=== PATIENT | male | born 1980 | race African-American/Black ===

== ENCOUNTER 2024-08-05 14:42 | Inpatient (IN) | payer OTHER, SELFPAY ==
[2024-08-05] VITALS (17 sets, daily range): BP systolic 109–162; BP diastolic 58–131; PULSE 91–114; RESP 13–20; TEMP 36.6–36.8; O2SAT 85–100; BMI 16.5
--- NOTE | ~2024-08-05 | XR_ITS ---
EXAMINATION: XR chest 1V portable 08/05/2024 16:39 INDICATION: AP portable chest PROCEDURE: AP portable chest COMPARISON: No prior studies for comparison. FINDINGS: The lungs are clear. The cardiomediastinal silhouette is within normal limits. There are no pleural effusions. There is no pneumothorax suspected. IMPRESSION: 1: NO ACUTE CARDIOPULMONARY DISEASE. Reviewed, dictated and finalized at location A.
--- NOTE | ~2024-08-05 | CT_ITS ---
EXAMINATION: CT abdomen pelvis w con DATE: 08/05/2024 16:42 INDICATION: Lower abdominal pain TECHNIQUE: Computed tomography (CT) of the abdomen and pelvis was performed with 100 mL Omnipaque-350 intravenous contrast. Automated exposure control and iterative reconstruction technique were employe d. The dose-length product was 432.43 mGy-cm. COMPARISON: None FINDINGS: Lung bases are clear. Visualized inferior aspect of the heart is normal. Atherosclerotic coronary art jose l calcium. No pericardial or pleural effusion. Focal hepatic steatosis at the ligamentum teres. Gal lbladder, spleen, pancreas, bilateral adrenal glands and kidneys are normal. Bowels appear unremarkab le with no obstruction. Normal appendix. Bladder is normal. No free intraperitoneal gas or fluid. No pathologically enlarged abdominal or pelvic lymphadenopathy. IMPRESSION: 1. No acute intra-abdominal/pelvic process. Reviewed, dictated and finalized at location A.
--- NOTE | 2024-08-05 14:53 | ED_ITS ---
HPI - General Adult General Chief complaint: Nausea/Vomiting/Diarrhea Stated complaint: n/v x 2 hours Time Seen by Provider: 08/05/24 14:49 History of Present Illness HPI narrative: 44-year-old male present to the emergency department for evaluation for lower abdominal pain with associated nausea vomiting and diarrhea. Patient states he has been sick for proximal last 3 days and has continued to worsen. Patient states he has been incontinent stool was diarrhea. Patient is a type 2 diabetic. Patient called EMS from a local hotel room. Patient does admit to smoking marijuana approximately 2 days ago. Patient does take metformin and Jardiance. While he has been out of his insulin he has still been taking these oral medications. Related Data Home Medications ?Medication ?Instructions ?Recorded ?Confirmed ?Last Taken ?Type empagliflozin 25 mg tablet 25 mg PO DAILY 08/05/24 08/05/24 08/04/24 History (Jardiance) insulin glargine 100 unit/mL (3 40 unit subcut QPM 08/05/24 08/05/24 07/29/24 History mL) subcutaneous pen (Basaglar KwikPen U-100 Insulin) metformin 500 mg tablet,extended 500 mg PO QPM 08/05/24 08/05/24 08/04/24 History release 24 hr Allergies Allergy/AdvReac Type Severity Reaction Status Date / Time No Known Allergies Allergy Verified 08/05/24 19:44 Review of Systems 2 Review of Systems: All systems reviewed & are unremarkable except as noted in HPI and below PMFSH Past Medical History Medical History DM2 (diabetes mellitus, type 2) Exam 2 Narrative: APPEARANCE: Uncomfortable appearing HEAD: normocephalic, atraumatic. EYES: PERRLA/EOMI, conjunctivae clear. NOSE: Normal no drainage EARS:TMS clear with good light reflex. THROAT: Pharynx clear, no exudate. NECK: Supple. No adenopathy, no masses. RESPIRATORY: Airway patent, respirations nonlabored. Clear to auscultation bilaterally, no rales, rhonchi, wheezing. CARDIOVASCULAR: Regular rate and rhythm without murmurs rubs or gallops. ABDOMINAL: Lower abdominal tenderness to palpation with normal bowel sounds, nondistended MUSCULOSKELETAL: Moves all extremities. Strength/ROM intact, No edema, No calf tenderness. NEURO: Alert. Cranial nerves II through XII intact. Good gait. Good coordination SKIN: Warm, dry. Normal Color Course Vital Signs Vital signs: Vital Signs Temperature 98 F 08/05/24 14:42 Pulse Rate 91 08/05/24 14:42 Respiratory Rate 15 08/05/24 14:42 Blood Pressure 141/74 H 08/05/24 14:42 Pulse Oximetry 99 08/05/24 14:42 Oxygen Delivery Room Air 08/05/24 14:42 Temperature 97.8 F 08/05/24 18:42 Pulse Rate 97 08/05/24 18:15 Respiratory Rate 13 08/05/24 18:15 Blood Pressure 147/85 H 08/05/24 18:15 Pulse Oximetry 85 L 08/05/24 18:15 Oxygen Delivery Room Air 08/05/24 14:42 Medical Decision Making MDM Narrative Medical decision making narrative: 44-year-old male present emergency department for evaluation for nausea vomiting diarrhea that is been worsening over the last few days and acutely worsened again over the last few hours. Patient is currently afebrile but does have a leukocytosis of 20.2 and hemoglobin of 14.8. Patient did have an ABG showing a pH is 7.019 a pCO2 of 14.7, patient's ABG showed a carbon dioxide of less than 5 a potassium of 5 and a glucose of 291 with a lactic acid of 4.2. Patient's initial troponin was negative. Patient's beta hydroxybutyrate was 12.8. Patient's ethanol was negative. Patient was negative for influenza RSV and for COVID. Patient was treated with an insulin bolus of 7 units IV along with 2 L of lactated Ringer's. Strong concern for DKA in this patient. ICU was consulted and patient will be started on IV insulin and the DKA protocol. Hypoglycemia orders were also ordered. Differential Diagnosis Differential Diagnosis: COVID, RSV, influenza, UTI, pneumonia, colitis, diverticulitis, appendicitis, DKA Vital Signs Vital Signs: Vital Signs Temperature 98 F 08/05/24 14:42 Pulse Rate 91 08/05/24 14:42 Respiratory Rate 15 08/05/24 14:42 Blood Pressure 141/74 H 08/05/24 14:42 Pulse Oximetry 99 08/05/24 14:42 Oxygen Delivery Room Air 08/05/24 14:42 Temperature 97.8 F 08/05/24 18:42 Pulse Rate 97 08/05/24 18:15 Respiratory Rate 13 08/05/24 18:15 Blood Pressure 147/85 H 08/05/24 18:15 Pulse Oximetry 85 L 08/05/24 18:15 Oxygen Delivery Room Air 08/05/24 14:42 Lab Data Lab results reviewed: Yes I reviewed the patient's lab results. 08/05/24 14:55 08/05/24 16:20 Labs: Lab Results 08/05/24 08/05/24 08/05/24 Range/Units 14:54 14:55 14:56 WBC 20.2 H (4.5-10.0) K/mm3 RBC 5.30 (4.6-6.20) M/mm3 Hgb 14.8 (14.0-18.0) g/dL Hct 48.4 (42.0-52.0) % MCV 91.3 (80-100) fl MCH 27.9 (26-34) pg MCHC 30.6 L (32-36) g/dl RDW 12.9 (11.5-14.5) % Plt Count 201 (150-375) k/mm3 MPV 13.2 H (7.4-10.4) fl Immature Gran % (Auto) Not Reportable Neut % (Auto) Not Reportable Lymph % (Auto) Not Reportable [place] % (Auto) Not Reportable Eos % (Auto) Not Reportable Baso % (Auto) Not Reportable Lymph # (Auto) Not Reportable [place] # (Auto) Not Reportable Eos # (Auto) Not Reportable Baso # (Auto) Not Reportable Abs Immat Gran (auto) Not Reportable Absolute Neuts (auto) Not Reportable Absolute Nucleated RBC Not Reportable Total Counted 100 Neutrophils % (Manual) 79 H (46-73) % Band Neutrophils % 4 (0-6) % Lymphocytes % (Manual) 12.0 L (18-44) % Monocytes % (Manual) 4 (3-9) % Basophils % (Manual) 1 (0-1) % Nucleated RBC % Not Reportable Abs Neuts (Manual) 16.76 H (1.3-6.7) K/mm3 Abs Lymphs (Manual) 2.42 (1.1-4.5) K/mm3 Abs Monocytes (Manual) 0.80 (0.1-0.90) K/mm3 Abs Basophils (Manual) 0.20 H (0.0-0.1) K/mm3 Platelet Estimate Adequate (Adequate) Clumped Platelets Present % Immature Plt Fraction 14.6 H (0.9-11.2) % Hypochromasia 1+ Schistocytes None seen Methemoglobin (0-1.5) %THb Sodium 136 L (137-145) mmol/L Potassium 5.0 (3.4-5.0) mmol/L Chloride 100 (98-107) mmol/L Carbon Dioxide < 5 L (22-30) mmol/L Anion Gap (4-12) mmol/L BUN 24 H (9-20) mg/dL Creatinine 1.46 H (0.7-1.3) mg/dL Estim Creat Clear Calc 55 ml/min Estimated GFR 53 L (59 - ) Glucose 291 H (65-110) mg/dL POC Capillary Glucose 307 H (65-105) mg/dl Lactic Acid 4.2 H* (0.7-2.0) mmol/L Calcium 9.9 (8.4-10.2) mg/dL Phosphorus 8.9 H (2.5-4.5) mg/dL Magnesium 2.3 (1.6-2.3) mg/dL Total Bilirubin 0.9 (0.2-1.3) mg/dL AST 37 (17-59) U/L ALT 38 (6-50) U/L Alkaline Phosphatase 120 (38-126) U/L Troponin I < 0.012 (0.000-0.034) ng/mL Total Protein 8.9 H (6.3-8.2) g/dL Albumin 5.4 H (3.5-5.1) g/dL Lipase 50 (23-300) U/L Beta-Hydroxybutyrate/Acetoacetate 12.80 H (0.02-0.27) mmol/L TSH (Reflex) 0.936 (0.465-4.68) uIU/mL Ethyl Alcohol < 10 (<10) mg/dL Influenza A (RT-PCR) Negative (Negative) Influenza B (RT-PCR) Negative (Negative) RSV (RT-PCR) Negative (Negative) SARS-CoV-2 RNA (RT-PCR) Negative (Negative) 08/05/24 Range/Units 15:11 WBC (4.5-10.0) K/mm3 RBC (4.6-6.20) M/mm3 Hgb (14.0-18.0) g/dL Hct (42.0-52.0) % MCV (80-100) fl MCH (26-34) pg MCHC (32-36) g/dl RDW (11.5-14.5) % Plt Count (150-375) k/mm3 MPV (7.4-10.4) fl Immature Gran % (Auto) Neut % (Auto) Lymph % (Auto) [place] % (Auto) Eos % (Auto) Baso % (Auto) Lymph # (Auto) [place] # (Auto) Eos # (Auto) Baso # (Auto) Abs Immat Gran (auto) Absolute Neuts (auto) Absolute Nucleated RBC Total Counted Neutrophils % (Manual) (46-73) % Band Neutrophils % (0-6) % Lymphocytes % (Manual) (18-44) % Monocytes % (Manual) (3-9) % Basophils % (Manual) (0-1) % Nucleated RBC % Abs Neuts (Manual) (1.3-6.7) K/mm3 Abs Lymphs (Manual) (1.1-4.5) K/mm3 Abs Monocytes (Manual) (0.1-0.90) K/mm3 Abs Basophils (Manual) (0.0-0.1) K/mm3 Platelet Estimate (Adequate) Clumped Platelets % Immature Plt Fraction (0.9-11.2) % Hypochromasia Schistocytes Methemoglobin 0.2 (0-1.5) %THb Sodium (137-145) mmol/L Potassium (3.4-5.0) mmol/L Chloride (98-107) mmol/L Carbon Dioxide (22-30) mmol/L Anion Gap (4-12) mmol/L BUN (9-20) mg/dL Creatinine (0.7-1.3) mg/dL Estim Creat Clear Calc ml/min Estimated GFR (59 - ) Glucose (65-110) mg/dL POC Capillary Glucose (65-105) mg/dl Lactic Acid (0.7-2.0) mmol/L Calcium (8.4-10.2) mg/dL Phosphorus (2.5-4.5) mg/dL Magnesium (1.6-2.3) mg/dL Total Bilirubin (0.2-1.3) mg/dL AST (17-59) U/L ALT (6-50) U/L Alkaline Phosphatase (38-126) U/L Troponin I (0.000-0.034) ng/mL Total Protein (6.3-8.2) g/dL Albumin (3.5-5.1) g/dL Lipase (23-300) U/L Beta-Hydroxybutyrate/Acetoacetate (0.02-0.27) mmol/L TSH (Reflex) (0.465-4.68) uIU/mL Ethyl Alcohol (<10) mg/dL Influenza A (RT-PCR) (Negative) Influenza B (RT-PCR) (Negative) RSV (RT-PCR) (Negative) SARS-CoV-2 RNA (RT-PCR) (Negative) ABG Data ABG results: 08/05/24 08/05/24 15:00 15:11 Puncture Site Right radial ABG pH 7.019 L* ABG pCO2 14.7 L* ABG pO2 Not Reportable ABG PO2/FiO2 Ratio Not Reportable ABG HCO3 3.7 L ABG O2 Saturation Not Reportable ABG O2 Content Not Reportable ABG Base Excess -25.5 VBG pH 6.990 L* VBG pCO2 18.2 L* VBG pO2 75.5 H VBG HCO3 4.3 L A-a Gradient Not Reportable Oxyhemoglobin 97.0 Carboxyhemoglobin 0.7 Reduced Hemoglobin 2.1 Total Hemoglobin 14.1 O2 Delivery Device Room air Room air O2 Liters/Min Not Reportable Not Reportable FiO2 21 21 Critical Care Time Critical Care Time Critical Care Time: Yes Total Critical Care Time: 35 Discharge Plan Discharge Clinical Impression: Nausea vomiting and diarrhea DKA (diabetic ketoacidosis) Qualifiers: Diabetes mellitus type: type 2 Diabetes mellitus complication detail: without coma Qualified Code(s): E11.10 - Type 2 diabetes mellitus with ketoacidosis without coma Patient Disposition: Still a Patient Condition: Serious
[2024-08-05] MEDS: LACTATED RINGERS 1,000 ML 999 ML IV CONT ×2 (15:01→15:38)
[2024-08-05] MEDS: ONDANSETRON INJ 4 MG/2 ML VIAL IV PUSH ×2 (15:01→20:02)
--- NOTE | 2024-08-05 15:02 | ECG_ITS ---
Test Date: 2024-08-05 15:09:14 Measurements Intervals [place] Rate: 92 P: 78 TN: 146 QRS: 68 QRSD: 90 T: 47 QT: 351 QTc: 435 Interpretive Statements SINUS RHYTHM CANNOT R/O SEPTAL INFARCT, AGE INDETERMINATE BORDERLINE ST-T WAVE ABNORMALITY- INF/LAT LEADS PEAKED T WAVES- CONSIDER HYPERKALEMIA ABNORMAL ECG No previous ECG available for comparison Electronically Signed On 08-05-2024 15:44:42 CDT by Broderick Miranda D.O.
[2024-08-05 15:03] LABS: Fractional Inspired Oxygen 21 %; HCO3 VBG 4.3 mEq/l (24.0-30.0); PO2 VBG 75.5 mmHg (35.0-45.0)
[2024-08-05 15:08] LABS: Hematocrit 48.4 % (42.0-52.0); Hemoglobin 14.8 g/dL (14.0-18.0); Immature Platelet Fraction Pct 14.6 % (0.9-11.2); Mean Corpuscular HGB Conc 30.6 g/dl (32-36); Mean Corpuscular Hemoglobin 27.9 pg (26-34); Mean Corpuscular Volume 91.3 fl (80-100); Mean Platelet Volume 13.2 fl (7.4-10.4); Platelet Count Result 201 k/mm3 (150-375); Red Cell Distribution Width 12.9 % (11.5-14.5); White Blood Count 20.2 K/mm3 (4.5-10.0)
[2024-08-05 15:08] LABS: PCO2 VBG 18.2 mmHg (42.0-48.0)
[2024-08-05 15:09] LABS: Device ROOM AIR
[2024-08-05 15:21] LABS: Ethanol < 10 mg/dL (<10)
[2024-08-05 15:22] LABS: Alanine Aminotransferase 38 U/L (6-50); Albumin Level 5.4 g/dL (3.5-5.1); Alkaline Phosphatase 120 U/L (38-126); Aspartate Amino Transferase 37 U/L (17-59); Bilirubin,Total 0.9 mg/dL (0.2-1.3); Blood Urea Nitrogen 24 mg/dL (9-20); Calcium 9.9 mg/dL (8.4-10.2); Carbon Dioxide < 5 mmol/L (22-30); Chloride 100 mmol/L (98-107); Estimated CRCL calculation 55 ml/min; Estimated Glomerular Filt Rate 53; Glucose 291 mg/dL (65-110); Lactic Acid Reflex 4.2 mmol/L (0.7-2.0); Lipase 50 U/L (23-300); Sodium 136 mmol/L (137-145); Total Protein 8.9 g/dL (6.3-8.2)
[2024-08-05 15:24] LABS: Base Excess ABG -25.5 mEq/l (+/-2.0); Carboxyhemoglobin 0.7 % THb (0-2.0); Fractional Inspired Oxygen 21 %; HCO3 ABG 3.7 mEq/l (22.0-26.0); Methemoglobin ABG 0.2 %THb (0-1.5); Reduced Hemoglobin 2.1 %THb (0-5.0); Total Hemoglobin 14.1 g/dL (12.0-18.0)
[2024-08-05 15:28] LABS: Device ROOM AIR; PCO2 ABG 14.7 mmHg (35.0-45.0); Site Drawn RIGHT RADIAL; pH ABG 7.019 (7.350-7.450)
[2024-08-05 15:33] LABS: Troponin I < 0.012 ng/mL (0.000-0.034)
[2024-08-05 15:37] LABS: Band Neutrophils Percent 4 % (0-6); Basophils Percent Manual 1 % (0-1); Lymphocytes Absolute Manual 2.42 K/mm3 (1.1-4.5); Monocytes Percent Manual 4 % (3-9); Neutrophils Absolute Manual 16.76 K/mm3 (1.3-6.7); Neutrophils Percent Manual 79 % (46-73); Platelet Clumps Present; Platelet Estimate Adequate (Adequate); Total Cells Counted 100
[2024-08-05] MEDS: INSULIN HUMAN REGULAR (*BKC) 100 UNITS/ML 7 UNITS IV PUSH (15:37)
[2024-08-05 15:38] LABS: Schistocytes None Seen
[2024-08-05 15:39] LABS: Hypochromasia 1+
[2024-08-05 15:46] LABS: Influenza A QL RT-PCR Negative (Negative); Influenza B QL RT-PCR Negative (Negative); RSV RNA, RT-PCR Negative (Negative); SARS-CoV-2 RNA PCR Negative (Negative)
[2024-08-05 15:53] LABS: Thyroid Stimulating Hormone Reflex 0.936 uIU/mL (0.465-4.68)
[2024-08-05 16:12] LABS: Magnesium 2.3 mg/dL (1.6-2.3); Phosphorus 8.9 mg/dL (2.5-4.5)
--- OUTSIDE RECORDS SUMMARY | 2024-08-05 16:22 | XMS_ITS | CONTINUITY OF CARE DOCUMENT ---
Author Name lu leigh Address Unknown Organization [facility] Address [address] [place] [address] Phone [phone] Care Team Providers Care Photo Retoucher Name Role Phone Kieran REYES, Karis Unavailable MICHAEL DAVIS MD Unavailable INSURANCE PROVIDERS Payer name Policy type / Coverage type [place] [employer] green party ID COUNTS INCLUDE [id number] BEDS AT THE [facility] PLAN Medicaid [id number]
--- OUTSIDE RECORDS SUMMARY | 2024-08-05 16:22 | XMS_ITS | Clinical Summary ---
Author Organization [facility] Address [address] [place] [address] Care Team Providers Care Business Information Analyst Name Role Phone Cesar Allen MD Primary Care Provider [phone] Allergies No known active allergies Medications benzonatate (TESSALON) 200 mg capsuleIndicati ons:Cough Take 1 capsule (200 mg total) by mouth 3 (three) times a day as needed for cough 20 capsule 1 07/10/2019 Active empagliflozin (Jardiance) 10 mg tablet Take 1 tablet (10 mg total) by mouth daily Active insulin glargine (BASAGLAR) 100 unit/mL (3 mL) pen for injection Inject 30 Units under the skin nightly 15 mL 04/27/2024 Active pen needle, diabetic (Pen Needle) 32 gauge x 5/32 needle Use as directed once a day. 100 each 04/27/2024 Active Active Problems Problem Noted Date Diagnosed Date Diabetic ketoacidosis withou t coma associated with type 2 diabetes mellitus 04/26/2024 Assessment & Plan (04/27/2024 2:41 PM LICENSING COORDINATOR): Presented with abdominal pain for 5 days and decreased oral intake/vomiting, found with DKA. History of type 2 diabetes. DKA likely in the setting of influenza a. Compliant with insulin regimen of 30 units nightly. On Jardiance. A1c 13.7 - s/p DKA protocol, bridged to long-acting insulin, basal/bolus ordered. CTM and adjust as needed - Jardiance on discharge since this is not euglycemic DKA and likely provoked by influenza - Follow with PCP physician for management of diabetes Influenza A 04/26/2024 Assessment & Plan (04/27/2024 2:41 PM LICENSING COORDINATOR): Influenza a virus, diagnosed April 23, complete his 5 days' course HTN (hypertension) 04/26/2024 Assessment & Plan (04/26/2024 11:37 PM LICENSING COORDINATOR): Previous history of hypertension: Currently off all treatments. BP control. COVID-19 virus infection 07/09/2019 Assessment & Plan (07/10/2019 9:38 AM CDT): Complicated by pneumomediastinum. Time course, resolving anorexia, improving lymphocyte count suggest that patient indeed recovering. Advised to quarantine for 14-day period starting with day of onset of symptoms. Plan APAP, antitussives. Instructed to return for readmission if severe dyspnea recurs. Assessment & Plan (07/09/2019 12:14 AM CDT): - He presented with URI symptoms and cough. Vital signs on admission stable with no O2 requirement. A CXR obtained on admission showed pneumomediastinum; GGOs seen on chest CT. - COVID-19 RNA PCR was sent on 07/07 and was positive. - Sending D-dimer, CRP, INR, ferritin, haptoglobi - Continue supportive care with antitussives and antipyretics as needed. - Continue COVID-19 droplet and contact precautions per hospital protocol. Closely monitor continuous pulse oximetry for evidence of decompensation. Pneumomediastinum 07/09/2019 Assessment & Plan (07/10/2019 9:41 AM CDT): Likely engendered by forceful coughing. Should prove self-limited. Antitussives. Assessment & Plan (07/09/2019 12:53 AM CDT): No esophageal or airway injury noted on CT chest and neck with contrast. Surgery curbsided by ED, no intervention indicated. Ok for a diet. -Monitor on telemetry with continuous pulse ox -Will need follow up CXR in afternoon -Surgery to leave formal recs DKA (diabetic ketoacidoses) 03/05/2019 Assessment & Plan (07/10/2019 9:36 AM CDT): Resolved. Likely engendered by COVID-19 infection. May resume home regimen at discharge. Assessment & Plan (07/09/2019 12:28 AM CDT): Home regimen is lantus (amount varies between 20 and 29 based on his blood sugars, and he appears to take it at variable times but usually at night) and metformin (ordered as TID). DKA likely triggered by COVID19 infection and dietary indiscretion. -Lantus 20 qhs + SSI ordered, monitor accucheck Assessment & Plan (03/05/2019 11:44 AM LICENSING COORDINATOR): Resolved. Admitted to MICU on 03/03 for DKA. Etiology likely diet-noncompliance during , also ?URI On arrival: Bicarb 5, AG 31, BG 309, Ketones 5.9 and +2 ketonuria. ABG 7. Resolved in 24hrs after IVF, insulin drip. Transferred to floor on 03/04 - Currently: BG 112, 99. Anion gap 14 - Tolerating diet. Denies n/v/abd pain Ischemic cardiomyopathy 03/05/2019 Assessment & Plan (07/10/2019 9:36 AM CDT): Compensated. Continue ASA, atorvastatin as before. Resume clopidogrel at discharge. Assessment & Plan (07/09/2019 12:28 AM CDT): Cont plavix, ASA, atorvastatin Assessment & Plan (03/05/2019 11:54 AM LICENSING COORDINATOR): Last echo in 2014, EF 41% - Cont toprol XL, 25mg - needs repeat echo outpatient Non-ST elevation (NSTEMI) myocardial infarction 02/24/2015 History of placement of sten t in anterior descending branch of left coronary artery 02/24/2015 Assessment & Plan (03/05/2019 11:53 AM LICENSING COORDINATOR): Status post PCI of the LAD with drug-eluting stent x2, in 2015 - Cont ASA, high-dose lipitor - Pt also on Plavix, told to ask PCP if he should remain on it given stent placed many yrs ago Hyperlipidemia 02/24/2015 Assessment & Plan (03/05/2019 11:50 AM LICENSING COORDINATOR): Cont statin Type 2 diabetes mellitus 02/24/2015 Assessment & Plan (03/05/2019 11:55 AM LICENSING COORDINATOR): A1c 14.4% Home regimen includes: 25u Lantus nightly, metformin 500mg TID (? frequency) In last 24hrs: required 29u total insulin (25u Lantus, 4u correctional) - I asked if he would like to stay to see diabetes education, but pt stated he would like to go home as his is working today and he needs to be with his child. - Stressed to patient importance of diet compliance. He is already compliant with his Lantus and metformin - He follows with Dr. Cesar Allen ([address] [place] [address]) as his PCP. He will make an appointment there later this week/early next week. Patient told to ask PCP if he should be seen by an vrt mechanic outpatient - Patient will purchase a new BG meter himself. He has supplies, including lancets and test strips already - Pt told to continue Lantus at 25u nightly. And to check his BG prior to giving himself the Lantus. If BG >200, he was told to take 27u. If BG >250, he was told to take 29u Surgical History Surgery Date Site/Laterality Comments VARICOCELE EXCISION 03/05/2018 - 03/04/2019 US ABDOMEN COMPLETE W LIVER DOPPLER (C) 09/21/2017 Right Medical History Medical History Date Comments Diabetes mellitus (HCC) [place] (mitral incompetence) 2014 Family History Medical History Relation Name Comments Heart disease Mother Family history of cardiac disorder - (Added by TW Conv) Relation Name Status Comments Mother Social History Tobacco Use Types Packs/Day Years Used Date Smoking Tobacco: Former Smokeless Tobacco: Never Alcohol Use Standard Drinks/Week Comments Yes 0 (1 standard drink = 0.6 oz pur e alcohol) Personal Safety Answer Date Recorded Have you ever been in or are you currently in a harmful physical or emotional relationship or is someone making you feel afraid or unsafe? Denies 04/26/2024 Sex and Gender Information Value Date Recorded Sex Assigned at Not on file Legal Sex Male 9:46 PM LICENSING COORDINATOR Gender Identity Not on file Sexual Orientation Not on file Obstetrics History Last Filed Vital Signs Vital Sign Reading Time Taken Comments Blood Pressure 137/89 04/27/2024 7:46 AM LICENSING COORDINATOR Pulse 91 04/27/2024 7:46 AM LICENSING COORDINATOR Temperature 36.8 C (98.2 F) 04/27/2024 7:46 AM LICENSING COORDINATOR Respiratory Rate 19 04/27/2024 7:46 AM LICENSING COORDINATOR Oxygen Saturation 100% 04/27/2024 7:46 AM LICENSING COORDINATOR Inhaled Oxygen Concentration - - Weight 78.9 kg (174 lb) 04/26/2024 4:58 PM LICENSING COORDINATOR Height 198.1 cm (6' 6) 04/26/2024 4:58 PM LICENSING COORDINATOR Body Mass Index 20.11 04/26/2024 4:58 PM LICENSING COORDINATOR Plan of Treatment Health Maintenance Due Date Last Done Comments Albumin Creatinine Ratio, Urine 1981 Depression Screening 1981 Prostate Cancer Screening-PSA 1981 Dilated Eye Exam 1981 Foot Exam 1981 DTaP/Tdap/Td Vaccine (1 - Tdap) 1992 Varicella Vaccines (1 of 2 - 13+ 2-dose series) 1994 Hepatitis B Screening 06/17/1999 Regular Well Visit/Exam 18-64 06/17/1999 Pneumococcal vaccine <65 (1 of 2 - PCV) 2000 Lipid Panel 07/07/2020 07/08/2019, 02/04, 05/30/2016, Additional history exists Hemoglobin A1C 10/25/2024 04/27/2024, 05/0 07/2019, 03/04/2019, Additional history exists Influenza Vaccine (Season Ended) 2024 eGFR 04/27/2025 04/27/2024, 04/06, 04/26/2024, Additional history exists Hepatitis C Screening Completed 05/30/2016 HPV Vaccines Aged Out No longer eligi ble based on patient's age to complete this topic Procedures Procedure Name Priority Date/Time Associated Diagnosis Comments HEMOGLOBIN A1C STAT 04/27/2024 12:41 AM LICENSING COORDINATOR EGFR Timed 04/27/2024 12:02 AM LICENSING COORDINATOR LIPID PANEL Timed 07/08/2019 9:44 PM CDT HEPATITIS C ANTIBODY STAT 05/30/2016 6:08 AM CDT from Last 3 Months or Most Recently Relevant to Health Maintenance Results * (ABNORMAL) Hemoglobin A1c (04/27/2024 12:41 AM LICENSING COORDINATOR) Hgb A1C 13.7(H) 4.0 - 5.6 % Estimated Average Glucose 346 mg/dL [facility] Comment: The ADA recommends reporting an estimated Average Glucose (eAG) with all Hemoglobin A1c results using the equation derived from a study of 507 normal and diabetic adults. Minority populations were underrepresented and children were not included. (Diabetes Care 2020; 43(S1): S66-S76). The eAG is not equivalent to a fasting glucose. Blood 04/27/2024 12:4 1 AM LICENSING COORDINATOR 04/27/2024 12:46 AM LICENSING COORDINATOR Narrative [facility] - 04/27/2024 5:20 AM LICENSING COORDINATOR With next set of labs us Johnny Carpenter MD LAB BLOOD ORDERABLES Final R esult [facility] Department [place] [address] * eGFR (04/27/2024 12:02 AM LICENSING COORDINATOR) eGFR >90 >=60 mL/min/1. 73 m2 Comment: Interpretive Data Reference Interval Normal >/= 90 mL/min/1.73m2 Mildly decreased* 60 - 89 mL/min/1.73m2 Mildly to moderately decreased 45 - 59 mL/min/1.73m2 Moderately to severely decreased 30 - 44 mL/min/1.73m2 Severely decreased 15 - 29 mL/min/1.73m2 Kidney Failure < 15 mL/min/1.73m2 *Relative to young adult level Estimated glomerular filtration rate is determined by the 2020 CKD-EPI equation recommended by the National Kidney Foundation (A Unifying Approach to GFR Estimation: Recommendations of the NKF-ASK Task Force on Reassessing the Inclusion of Race in Diagnosing Kidney Disease, JASN 2020). The CKD-EPI equation should not be used for patients with unstable renal function and has not been validated in children and those over 70. Current interpretive data was last reviewed 2021. Blood 04/27/2024 12:0 2 AM LICENSING COORDINATOR 04/27/2024 12:24 AM LICENSING COORDINATOR us Phuong Bob MD LAB BLOOD ORDERABLES Final Res ult [facility] Department [place] [address] * (ABNORMAL) Lipid panel (07/08/2019 9:44 PM CDT) Cholesterol 336(H) 30 - 199 mg/dL [facility] Comment: Interpretive Data Ages < or = 19 years Acceptable: <170 mg/dL Borderline high: 170-199 mg/dL High: >or= 200 mg/dL Ages > or = 20 years Desirable: <200 mg/dL Borderline high: 200-239 mg/dL High: >or= 240 mg/dL Literature References: 1. Expert Panel on Integrated Guidelines for Cardiovascular Health and Risk Reduction in Children and Adolescents. Pediatrics 2011;128:S213 2. NCEP Expert Panel. Circulation 2004;110:227 Current Interpretive Data was last revised on 2017. Triglycerides 132 <=149 mg/dL [facility] Comment: Interpretive Data Ages < or = 9 years Acceptable: <75 mg/dL Borderline high: 75-99 mg/dL High: >or= 100 mg/dL Ages 10 to 20 years Acceptable: <90 mg/dL Borderline high: 90-129 mg/dL High: >or= 130 mg/dL Ages > or = 20 years Desirable: <150 mg/dL Borderline high: 150-199 mg/dL High: 200-499 mg/dL Very high: >or= 499 mg/dL Literature References: 1. Expert Panel on Integrated Guidelines for Cardiovascular Health and Risk Reduction in Children and Adolescents. Pediatrics 2011;128:S213 2. NCEP Expert Panel. Circulation 2004;110:227 Current Interpretive Data was last revised on 2017. HDL 20(L) >=40 mg/dL [facility] Comment: Interpretive Data Ages < or = 19 years Acceptable: >45 mg/dL Borderline low: 40-45 mg/dL Low: <40 mg/dL Ages > or = 20 years Desirable: >or= 60 mg/dL Low: <40 mg/dL Literature References: 1. Expert Panel on Integrated Guidelines for Cardiovascular Health and Risk Reduction in Children and Adolescents. Pediatrics 2011;128:S213 2. NCEP Expert Panel. Circulation 2004;110:227 Current Interpretive Data was last revised on 2017. LDL, calculated 290(H) <=129 mg/dL [facility] Comment: Interpretive Data Ages < or = 19 years Acceptable: <110 mg/dL Borderline high: 110-129 mg/dL High: >or= 130 mg/dL Ages > or = 20 years Optimal: <100 mg/dL Near optimal: 100-129 mg/dL Borderline high: 130-159 mg/dL High: >160 mg/dL Literature References: 1. Expert Panel on Integrated Guidelines for Cardiovascular Health and Risk Reduction in Children and Adolescents. Pediatrics 2011;128:S213 2. NCEP Expert Panel. Circulation 2004;110:227 Current Interpretive Data was last revised on 2017. Non-HDL Cholesterol 316 mg/dL [facility] Comment: Interpretive Data Ages < or = 19 years Acceptable: <120 mg/dL Borderline high: 120-144 mg/dL High: >145 mg/dL Ages > or = 20 years When triglycerides are >200 mg/dL, Non-HDL cholesterol is a secondary target of therapy with treatment goals that are 30 mg/dL greater than the LDL cholesterol target. Literature References: 1. Expert Panel on Integrated Guidelines for Cardiovascular Health and Risk Reduction in Children and Adolescents. Pediatrics 2011;128:S213 2. NCEP Expert Panel. Circulation 2004;110:227 Current Interpretive Data was last revised on 2017. Chol/HDL ratio 17 [facility] Blood specimen (specimen) 07/08/2019 9:44 PM CDT 07/08/2019 10:01 PM CDT us Gerardo Miller MD LAB BLOOD ORDERABLES Final Result Performing Organization Address [facility] Co de Phone Number [phone] [place] [address] * Hepatitis C antibody (05/30/2016 6:08 AM CDT) Hep C Ab Nonreactive [facility] Comment: Interpretive Data Positive results should be confirmed by a molecular method. If positive, a second separately collected sample should be submitted for Hepatitis C Virus (HCV) RNA Detection and Quantitation by Real-Time Reverse Migration Specialist-PCR (RT-PCR). Current interpretive data was last revised on 2016. Blood specimen (specimen) 05/30/2016 6:08 AM CDT 05/30/2016 6:45 AM CDT us Sterling Delgado MD LAB MICROBIOLOGY - GENERAL OR DERABLES Edited Result - Final Performing Organization Address [facility] Co de Phone Number [facility] [place] [address] from Last 3 Months or Most Recently Relevant to Health Maintenance Insurance [facility] Advance Directives For more information, please contact: [phone] * Full Code (Latest Code Status on File) Date Activated Date Inactivated Comments 07/09/2019 12:24 AM 07/10/2019 6:19 PM * Full Code Date Activated Date Inactivated Comments 03/04/2019 1:49 AM 03/05/2019 6:24 PM Care Teams Business Information Analyst Relationship Specialty Start Date End Date Cesar Allen MD [address] [place] [address] PCP - General 05/29/16
--- OUTSIDE RECORDS SUMMARY | 2024-08-05 16:22 | XMS_ITS | Referral Summary ---
Author Organization [facility] Address [address] [place] [address] Care Team Providers Care Cage Cashier Name Role Phone Cesar Allen MD Primary Care Provider +1- [phone] Allergies No known active allergies Medications benzonatate [...] 04/26/2024 Assessment & Plan (04/27/2024 2:41 PM SUBMARINE WORKER): Presented with abdominal pain for 5 days [...] 04/26/2024 Assessment & Plan (04/27/2024 2:41 PM SUBMARINE WORKER): Influenza a virus, diagnosed April 23, complete his 5 days' course HTN (hypertension) 04/26/2024 Assessment & Plan (04/26/2024 11:37 PM SUBMARINE WORKER): Previous history of hypertension: Currently off all [...] accucheck Assessment & Plan (03/05/2019 11:44 AM SUBMARINE WORKER): Resolved. Admitted to MICU on 03/03 for [...] atorvastatin Assessment & Plan (03/05/2019 11:54 AM SUBMARINE WORKER): Last echo in 2014, EF 41% - Cont toprol XL, 25mg - needs repeat echo outpatient Non-ST elevation (NSTEMI) myocardial infarction 02/24/2015 History of placement of sten t in anterior descending branch of left coronary artery 02/24/2015 Assessment & Plan (03/05/2019 11:53 AM SUBMARINE WORKER): Status post PCI of the LAD with drug-eluting stent x2, in 2015 - Cont ASA, high-dose lipitor - Pt also on Plavix, told to ask PCP if he should remain on it given stent placed many yrs ago Hyperlipidemia 02/24/2015 Assessment & Plan (03/05/2019 11:50 AM SUBMARINE WORKER): Cont statin Type 2 diabetes mellitus 02/24/2015 Assessment & Plan (03/05/2019 11:55 AM SUBMARINE WORKER): A1c 14.4% Home regimen includes: 25u Lantus [...] He follows with Dr. Cesar Allen ([address] [place] [address]) as his PCP. He will make an appointment there later this week/early next week. Patient told to ask PCP if he should be seen by an set up mechanic outpatient - Patient will purchase a new BG meter himself. He has supplies, including lancets and test strips already - Pt told to continue Lantus at 25u nightly. And to check his BG prior to giving himself the Lantus. If BG >200, he was told to take 27u. If BG >250, he was told to take 29u Social History Tobacco Use Types Packs/Day Years [...] on file Legal Sex Male 9:46 PM SUBMARINE WORKER Gender Identity Not on file Sexual Orientation Not on file Last Filed Vital Signs Vital Sign Reading Time Taken Comments Blood Pressure 137/89 04/27/2024 7:46 AM SUBMARINE WORKER Pulse 91 04/27/2024 7:46 AM SUBMARINE WORKER Temperature 36.8 C (98.2 F) 04/27/2024 7:46 AM SUBMARINE WORKER Respiratory Rate 19 04/27/2024 7:46 AM SUBMARINE WORKER Oxygen Saturation 100% 04/27/2024 7:46 AM SUBMARINE WORKER Inhaled Oxygen Concentration - - Weight 78.9 kg (174 lb) 04/26/2024 4:58 PM SUBMARINE WORKER Height 198.1 cm (6' 6) 04/26/2024 4:58 PM SUBMARINE WORKER Body Mass Index 20.11 04/26/2024 4:58 PM SUBMARINE WORKER Plan of Treatment Not on file Procedures Procedure Name Priority Date/Time Associated Diagnosis Comments HEMOGLOBIN A1C STAT 04/27/2024 12:41 AM SUBMARINE WORKER EGFR Timed 04/27/2024 12:02 AM SUBMARINE WORKER LIPID PANEL Timed 07/08/2019 9:44 PM CDT HEPATITIS C ANTIBODY STAT 05/30/2016 6:08 AM CDT from Last 3 Months or Most Recently Relevant to Health Maintenance Results * (ABNORMAL) Hemoglobin A1c (04/27/2024 12:41 AM SUBMARINE WORKER) Hgb A1C 13.7(H) 4.0 - 5.6 % Estimated Average Glucose 346 mg/dL [facility] Comment: The ADA recommends reporting an estimated Average Glucose (eAG) with all Hemoglobin A1c results using the equation derived from a study of 507 normal and diabetic adults. Minority populations were underrepresented and children were not included. (Diabetes Care 2020; 43(S1): S66-S76). The eAG is not equivalent to a fasting glucose. Blood 04/27/2024 12:4 1 AM SUBMARINE WORKER 04/27/2024 12:46 AM SUBMARINE WORKER Narrative [facility] - 04/27/2024 5:20 AM SUBMARINE WORKER With next set of labs us Johnny Carpenter MD LAB BLOOD ORDERABLES Final R esult [facility] Department [place] [address] * eGFR (04/27/2024 12:02 AM SUBMARINE WORKER) eGFR >90 >=60 mL/min/1. 73 m2 Comment: [...] reviewed 2021. Blood 04/27/2024 12:0 2 AM SUBMARINE WORKER 04/27/2024 12:24 AM SUBMARINE WORKER us Phuong Bob MD LAB BLOOD ORDERABLES Final Res ult Performing Organization Address [facility] Co de Phone Number [facility] [place] [address] * (ABNORMAL) Lipid panel (07/08/2019 9:44 PM CDT) Cholesterol 336(H) 30 - 199 mg/dL [facility] Comment: Interpretive Data Ages < or [...] revised on 2017. Triglycerides 132 <=149 mg/dL [facility] Comment: Interpretive Data Ages < or = [...] revised on 2017. HDL 20(L) >=40 mg/dL [facility] Comment: Interpretive Data Ages < or = [...] on 2017. LDL, calculated 290(H) <=129 mg/dL [facility] Comment: Interpretive Data Ages < or = [...] Pediatrics 2011;128:S213 2. NCEP Expert Panel. Circulation 2003;110:227 Current Interpretive Data was last revised on 2017. Non-HDL Cholesterol 316 mg/dL [facility] Comment: Interpretive Data Ages < or [...] last revised on 2017. Chol/HDL ratio 17 [facility] Blood specimen (specimen) 07/08/2019 9:44 PM CDT 07/08/2019 10:01 PM CDT us Gerardo Miller MD LAB BLOOD ORDERABLES Final Result Performing Organization Address [facility] Co de Phone Number [facility] [place] [employer] [place] [address] * Hepatitis C antibody (05/30/2016 6:08 AM CDT) Hep C Ab Nonreactive [facility] Comment: Interpretive Data Positive results should be confirmed by a molecular method. If positive, a second separately collected sample should be submitted for Hepatitis C Virus (HCV) RNA Detection and Quantitation by Real-Time Reverse Linoleum Floor Layer-PCR (RT-PCR). Current interpretive data was last revised on 2016. Blood specimen (specimen) 05/30/2016 6:08 AM CDT 05/30/2016 6:45 AM CDT us Sterling Delgado MD LAB MICROBIOLOGY - GENERAL OR DERABLES Edited Result - Final Performing Organization Address City/[facility]/ZIP Co de Phone Number [facility] [place] [place] [address] from Last 3 Months or Most Recently Relevant to Health Maintenance Insurance [facility] Advance Directives For more information, please contact: [phone] * Full Code (Latest Code Status on File) Date Activated Date Inactivated Comments 07/09/2019 12:24 AM 07/10/2019 6:19 PM * Full Code Date Activated Date Inactivated Comments 03/04/2019 1:49 AM 03/05/2019 6:24 PM Care Teams Cage Cashier Relationship Specialty Start Date End Date Cesar Allen MD [address] [place] [id number] PCP - General 05/29/16
--- NOTE | 2024-08-05 16:25 | P.HP_ITS ---
H&P: HPI History of Present Illness Date/Time: 08/05/24 16:25 Chief Complaint: Nausea, Vomiting Narrative: 44 y/o M with PMH of DM2 presents here with nausea and vomiting. The patient presents here from home via EMS for further evaluation of nausea and vomiting. He reports onset of symptoms 3 days ago. Now also experiencing bowel incontinence, diarrhea, and lower abdominal pain that he describes as 6/10, nonradiating, intermittent, and no aggravating or alleviating factors. He has a history of type 2 diabetes, currently on Metformin, Jardiance, and Insulin. He reports he ran out of his insulin for about one week and has only been on his oral medications. He follows with PCP for his diabetes/endocrine care. History of DKA - last occurrence was a couple months back. Initial VS at presentation: 98? F, HR 91, R 15, 141/74, and 99% on RA. ED workup showed: WBC 20.2, no anemia, ABG showed a pH of 7.019/CO2 14.7/HC03 3.7, sodium 136, creatinine 1.46 and GFR 53 (no previous available for gwendolynjulia dudley), lactic 4.2, glucose 291, phosphorus 8.9, albumin 5.4, beta hydroxy 12.8, and TSH within normal limits. ETOH negative. Viral PCR negative. Review of Systems Review of Systems: All systems reviewed & are unremarkable except as noted in HPI and below PMFSH Past Medical History Medical History (Updated 08/05/24 @ 21:01 by Tammy Garcia APRN) DKA (diabetic ketoacidosis) DM2 (diabetes mellitus, type 2) Social History Social History Smoking status: Never smoker Alcohol intake: former Drinks per week: 3 Substance use: former Substance use type: marijuana Last use: 08/04/2024 Do You Feel Safe in your Home?: Yes Lack of Transportation: No Lack of Food: Never True Current Housing: Decline to Answer Concerned About Future Housing: No Difficulty Paying Gas/Electric Bills: No Difficulty Paying for Meds: No Currently Unemployed: No Education: Decline to Answer Difficulty w/ Childcare or Family Care: No Spiritual care concerns: No Meds Home Medications and Allergies Home Medications ?Medication ?Instructions ?Recorded ?Confirmed ?Type empagliflozin 25 mg tablet 25 mg PO DAILY 08/05/24 08/05/24 History (Jardiance) insulin glargine 100 unit/mL (3 40 unit subcut QPM 08/05/24 08/05/24 History mL) subcutaneous pen (Basaglar KwikPen U-100 Insulin) metformin 500 mg tablet,extended 500 mg PO QPM 08/05/24 08/05/24 History release 24 hr Allergies Allergy/AdvReac Type Severity Reaction Status Date / Time No Known Allergies Allergy Verified 08/05/24 19:44 Vital Signs Vital Signs - 24 hr 08/05/24 14:42 08/05/24 15:37 Temperature 98 F Pulse Rate 91 95 Respiratory Rate 15 17 Blood Pressure 141/74 H 151/131 H Pulse Oximetry 99 Oxygen Delivery Room Air Exam Const: General: comfortable and no acute distress Other: , male, ill-appearing HENMT: Face/Nose/Sinus: Normal nares present Mouth: Yes dry mucous membrane s Eyes: General: appearance normal, both eyes and all related structures Sclera: sclerae normal Pupils: Equal, round and reactive pupils present EOM: EOMs intact bilaterally Resp: Effort & Inspection: normal respiratory effort Auscultation: clear to auscultation bilaterally Cardio: Rate: regular rate Rhythm: regular rhythm Other: S1-S2 present without murmur, rub, ectopy GI: Other: Diffuse abdominal tenderness, abdomen remained soft and nondistended. Normoactive bowel sounds in all quadrants. Skin: General skin exam: normal color and no rashes or lesions noted Wounds: no wounds Neuro: Speech: normal speech Motor exam (neuro): 5/5 motor strength present throughout Sensory Exam: normal sensation Other: A&O x4, mildly somnolent Extrem: General: normal to inspection Psych: Mental Status: mental status grossly normal Affect: normal affect Other: Good insight and judgment appear H&P: Results Labs Labs: Short CBC 08/05/24 Range/Units 14:55 WBC 20.2 H (4.5-10.0) K/mm3 Hgb 14.8 (14.0-18.0) g/dL Hct 48.4 (42.0-52.0) % Plt Count 201 (150-375) k/mm3 [facility] 08/05/24 14:55 Sodium 136 L Potassium 5.0 Chloride 100 Carbon Dioxide < 5 L BUN 24 H Creatinine 1.46 H Glucose 291 H Calcium 9.9 Cardiac Enzymes 08/05/24 Range/Units 14:55 Troponin I < 0.012 (0.000-0.034) ng/mL Liver Function 08/05/24 Range/Units 14:55 Total Bilirubin 0.9 (0.2-1.3) mg/dL AST 37 (17-59) U/L ALT 38 (6-50) U/L Alkaline Phosphatase 120 (38-126) U/L Albumin 5.4 H (3.5-5.1) g/dL Assessment and Plan Assessment and plan (1) DKA (diabetic ketoacidosis): Qualifiers: Diabetes mellitus complication detail: without coma Diabetes mellitus type: type 2 Qualified Code(s): E11.10 - Type 2 diabetes mellitus with ketoacidosis without coma Code(s): E11.10 - Type 2 diabetes mellitus with ketoacidosis without coma Status: Acute Assessment and Plan: - history of type 2 diabetes on insulin, metformin, and Jardiance. Has been out of insulin. - initial glucose POC 307 - labs: WBC 20.2, pH 7.019, CO2 14.7, HC03 3.7, sodium 136, potassium 5.0, creatinine 1.46, GFR 53, lactic 4.2, beta hydroxy 12.8 - trend BMP Q4H, repeat Mag and Phos - DKA protocol initiated - IV fluids: given 2L in ED. Now on protocol fluids. - insulin gtt currently held, will initiate in the ICU - NPO - hold home medications - freezer tunnel operator consulted - staff educator consulted - acid tender consulted (2) Nausea vomiting and diarrhea: Code(s): R11.2 - Nausea with vomiting, unspecified; R19.7 - Diarrhea, unspecified Status: Acute Assessment and Plan: - check CT abd/pelvis -> no acute intra-abdominal/pelvic process noted. - awaiting UA -> no evidence of infection - lipase within normal limits - suspect symptoms secondary to DKA, will rule out additional etiologies Plan Diet: NPO GI Prophylaxis: Pantoprazole DVT Prophylaxis: Lovenox SQ IV fluids: DKA protocol fluid, 2L bolus Lines/Tubes: Peripheral IV Code Status: Full code Quality VTE Prophylaxis VTE prophylaxis: mechanical ordered Critical Care Time: I personally spent 35 minutes of direct patient care including (but not limited to) the physical examination, decision-making, bedside evaluation, review of medical records, review of labs and imaging, discussion with nursing staff and other providers for collaborative, critical care management of this patient. Hospitalist [facility] Advance Care Plan I have confirmed that the patient's Advanced Care Plan is present, code status is documented, or surrogate decision maker is listed in patient medical record.: Yes Medication Reconciliation I have utilized all available resources to obtain, update and review the patients current medications (includes all prescriptions, OTC, herbals, cannabis, and nutritional supplements).: Yes
[2024-08-05 16:26] LABS: Glucose Point of Care 307 mg/dl (65-105)
[2024-08-05 16:26] LABS: Glucose Point of Care 300 mg/dl (65-105)
[2024-08-05] MEDS: INSULIN HUMAN REGULAR (*BKC) 100 UNITS/ML IV PUSH (16:26)
[2024-08-05] MEDS: LACTATED RINGERS 1,000 ML 125 ML IV CONT (16:26)
[2024-08-05 17:03] LABS: Reflex Lactic Acid Yes or No Add Lactic
[2024-08-05] MEDS: SODIUM CHLORIDE 0.9% IV 1,000 ML 150 ML IV CONT (17:03)
[2024-08-05 17:09] LABS: Blood Urea Nitrogen 24 mg/dL (9-20); Calcium 9.7 mg/dL (8.4-10.2); Carbon Dioxide < 5 mmol/L (22-30); Chloride 102 mmol/L (98-107); Estimated CRCL calculation 65 ml/min; Estimated Glomerular Filt Rate > 60; Glucose 288 mg/dL (65-110); Hemoglobin A1C > 14.0 % (<5.7); Potassium 5.3 mmol/L (3.4-5.0); Sodium 137 mmol/L (137-145)
[2024-08-05 17:23] LABS: Glucose Point of Care 232 mg/dl (65-105)
[2024-08-05 17:34] LABS: Add Urine Microscopic? YES; Appearance Urine Clear (Clear); Bacteria Urine None Seen /hpf; Bilirubin Urine Negative (Negative); Blood Urine 1+ (Negative); Color Urine Yellow (Yellow); Glucose Urine UA 3+ mg/dL (Negative); Hyaline Casts Urine Present /lpf; Ketones Urine 4+ mg/dL (Negative); Leukocyte Esterase Ur Negative LEU/UL (Negative); Need Manual Microscopic Reviewed; Nitrate Urine Negative (Negative); Protein Urine 2+ mg/dL (Negative); RBC Urine 0-2 /hpf (0-2); Specific Grav Ur 1.024 (1.001-1.035); Squamous Epithelial Cell Urine None Seen /hpf (Few); Urobilinogen Urine 0.2 mg/dL (<2.0); WBC Urine 0-5 /hpf (0-3)
[2024-08-05 17:38] LABS: Amphetamine Screen Urine Negative (Negative); Barbiturate Screen Urine Negative (Negative); Benzodiazepines Screen Urine Negative (Negative); Cannabinoid Screen Urine Positive (Negative); Cocaine Screen Urine Negative (Negative); Methadone Screen Urine Negative (Negative); Opiate Screen Urine Negative (Negative); Phencyclidine Screen Urine Negative (Negative)
[2024-08-05 17:41] LABS: Alanine Aminotransferase 34 U/L (6-50); Albumin Level 4.8 g/dL (3.5-5.1); Alkaline Phosphatase 111 U/L (38-126); Aspartate Amino Transferase 35 U/L (17-59); Bilirubin,Total 0.8 mg/dL (0.2-1.3); Total Protein 7.8 g/dL (6.3-8.2)
[2024-08-05] MEDS: DEXTROSE 5%/0.45% SOD CHL 1,000 ML 150 ML IV CONT (17:49)
--- NOTE | 2024-08-05 17:50 | PC.NURSE ---
Spoke with Tammy and informed her BS dropped prior to starting insulin infusion. Tammy voiced to start D5 .45NS at the 150ml/hr and let that run briefly before starting insulin. She reported not to start kcl 20meq/D5 at this time
[2024-08-05 17:57] LABS: Lactic Acid 4.4 mmol/L (0.7-2.0)
[2024-08-05] MEDS: INSULIN HUMAN REGULAR (*BKC) 100 UNITS in SODIUM CHLORIDE 0.9% IV 99 ML 6.68 UNITS IV CONT (18:08)
[2024-08-05 18:18] LABS: MRSA (PCR) NOT DETECTED (NOT DETECTE)
[2024-08-05 18:23] LABS: Glucose Point of Care 260 mg/dl (65-105)
--- NOTE | 2024-08-05 18:52 | PC.NURSE ---
This patient, Nomi Elliott, was admitted to Intensive Care Unit-8. Patient/family oriented to hospital policies and general routines including ID bracelet, bed and alarms, visiting hours, pain management, procedures, bathroom and other care routines, personal items, smoking policy, room service/diet, and visiting hours. Information on how to activate the Rapid Response Team has been discussed. Patient/Family are encouraged to report perceived risks to care and to ask questions if they do not understand what they are told or what they should do.
[2024-08-05 19:05] LABS: Glucose Point of Care 255 mg/dl (65-105)
[2024-08-05 20:13] LABS: Glucose Point of Care 246 mg/dl (65-105)
[2024-08-05 20:41] LABS: Blood Urea Nitrogen 21 mg/dL (9-20); Calcium 9.1 mg/dL (8.4-10.2); Carbon Dioxide < 5 mmol/L (22-30); Chloride 105 mmol/L (98-107); Estimated CRCL calculation 81 ml/min; Estimated Glomerular Filt Rate > 60; Glucose 189 mg/dL (65-110); Potassium 4.5 mmol/L (3.4-5.0); Sodium 135 mmol/L (137-145)
[2024-08-05] MEDS: INSULIN HUMAN REGULAR (*BKC) 100 UNITS in SODIUM CHLORIDE 0.9% IV 99 ML 6.5 UNITS IV CONT (21:05)
[2024-08-05 22:13] LABS: Glucose Point of Care 183 mg/dl (65-105)
[2024-08-05 22:13] LABS: Glucose Point of Care 202 mg/dl (65-105)
[2024-08-05 23:03] LABS: Glucose Point of Care 185 mg/dl (65-105)
[2024-08-06] VITALS (15 sets, daily range): BP systolic 106–161; BP diastolic 62–106; PULSE 66–99; RESP 11–24; TEMP 36.2–36.9; O2SAT 99–100; BMI 16.9
--- NOTE | 2024-08-06 | ECHO_ITS ---
Patient Info Name: Nomi Elliott Age: 44 years : 1980 Gender: Male Ht: 79 in Wt: 150 lbs BSA: 1.92 m2 HR: 75 bpm BP: 153 / 71 mmHg Heart Rhythm: Sinus Rhythm Technical Quality: Fair Exam Date: 08/06/2024 1:17 PM Patient Status: O Admit Date: 08/05/2024 Exam Type: CA echo doppler color flow Complete two-dimensional, color flow and Doppler transthoracic echocardiogram is performed. Staff Referring Physician: Lasha Madera Reaming Machine Operator For Plastic: Lilly Vance Attending Provider: Kristian Romano Summary 1. Left ventricular chamber dimension is normal. 2. Left ventricular systolic function is mildly reduced, estimated at 40-45. 3. There is hypokinesis of the anteroseptum, inferoseptum, anterior wall. 4. The left ventricular diastolic function is grade I diastolic dysfunction. 5. Right ventricular systolic function is normal. 6. No significant valvular disease. Left Ventricle Left ventricular chamber dimension is normal. There is no increased left ventricular wall thickness. Left ventricular systolic function is mildly reduced, estimated at 40-45. There is hypokinesis of the anteroseptum, inferoseptum, anterior wall. The left ventricular diastolic function is grade I diastolic dysfunction. Right Ventricle Right ventricular chamber dimension is normal. Right ventricular systolic function is normal. Left Atria Left atrial chamber dimension is normal. Right Atria Right atrial chamber dimension is normal. Atrial Septum Intact interatrial septum visualized by color flow imaging. Aortic Valve The aortic valve is probable trileaflet. There is no aortic valve stenosis. There is no aortic valve regurgitation. Pulmonic Valve The pulmonic valve is not well visualized. Mitral Valve There is trace mitral valve regurgitation. Tricuspid Valve There is trace tricuspid valve regurgitation. Pericardium/Pleural There is no pericardial effusion. Inferior Vena Cava Normal inferior vena cava with >50% collapse upon inspiration consistent with normal right atrial pressure, 3 mmHg. Aorta The aortic root size at the sinus of Valsalva is normal. Left Ventricular Outflow Tract Name Value Normal LVOT 2D LVOT Diameter 2.2 cm LVOT Doppler LVOT Peak Velocity 84 cm/s LVOT Peak Gradient 3 mmHg LVOT Mean Gradient 2 mmHg LVOT VTI 20 cm LVOT VTI/AV VTI Ratio 0.9 LVOT Stroke Volume 79 ml LVOT CO 5.6 l/min LVOT CI 2.9 l/min/m2 Pulmonic Valve Name Value Normal PV Doppler PV Peak Velocity 112 cm/s PV Peak Gradient 5 mmHg Mitral Valve Name Value Normal MV Diastolic Function MV E Peak Velocity 62 cm/s MV A Peak Velocity 68 cm/s MV E/A 0.9 MV Decel Time (PW) 198 ms MV Annular TDI MV E/e' (Septal) 8.4 MV E/e' (Lateral) 4.8 MV E/e' (Average) 6.6 Tricuspid Valve Name Value Normal Estimated PAP/RSVP RA Pressure 3 mmHg <=5 TV Annular TDI TV Lateral Annette s' Velocity 14.3 cm/s >=9.5 Aortic Valve Name Value Normal AV Doppler AV Peak Velocity 112 cm/s AV Peak Gradient 5 mmHg AV Mean Gradient 3 mmHg AV VTI 24 cm AV Area (Cont Eq VTI) 3.3 cm2 >=3.0 AV Area (Cont Eq Dylan) 2.9 cm2 AV DI (Dylan) 0.75 AV Regurgitation 2D LVOT Area 3.9 cm2 Ventricles Name Value Normal LV Dimensions 2D/MM IVS Diastolic Thickness (2D) 0.7 cm 0.6-1.0 LVID Diastole (2D) 5.3 cm 4.2-5.8 LVIW Diastolic Thickness (2D) 0.7 cm 0.6-1.0 LVID Systole (2D) 3.8 cm 2.5-4.0 LVOT Diameter 2.2 cm LV Mass (2D Cubed) 125.81 g 88.00-224.00 LV Mass Index (2D Cubed) 66 g/m2 49-115 Relative Wall Thickness (2D) 0.28 <=0.42 LV Fractional Shortening/Ejection Fraction 2D/MM LV Fractional Shortening (2D) 29 % 25-43 LV EF (2D Teichholz) 55 % LV Diastolic Volume (4C MOD) 110 ml LV EF (4C MOD) 58 % LV Diastolic Volume (2C MOD) 112 ml LV EF (2C MOD) 60 % LV Diastolic Volume (BP MOD) 112 ml 62-150 LV Diastolic Volume Index (BP MOD) 58 ml/m2 34-74 LV Systolic Volume (BP MOD) 46 ml 21-61 LV Systolic Volume Index (BP MOD) 24 ml/m2 11-31 LV EF (BP MOD) 59 % 52-72 LV Diastolic Length (4C) 8.7 cm LV Systolic Length (4C) 6.9 cm LV Stroke Volume (4C MOD) 64 ml Atria Name Value Normal LA Dimensions LA Volume (4C A-L) 34 ml LA Volume (BP A-L) 27 ml RA Dimensions RA Systolic [place] Length (4C) 3.9 cm 2.1-2.7 RA Area (4C) 9.9 cm2 <=18.0 Report Signatures
[2024-08-06 00:06] LABS: Glucose Point of Care 212 mg/dl (65-105)
[2024-08-06 00:40] LABS: Anion Gap 23 mmol/L (4-12); Blood Urea Nitrogen 17 mg/dL (9-20); Calcium 9.1 mg/dL (8.4-10.2); Carbon Dioxide 6 mmol/L (22-30); Chloride 105 mmol/L (98-107); Estimated CRCL calculation 95 ml/min; Estimated Glomerular Filt Rate > 60; Glucose 182 mg/dL (65-110); Potassium 5.1 mmol/L (3.4-5.0); Sodium 134 mmol/L (137-145)
[2024-08-06] MEDS: DEXTROSE 5%/0.45% SOD CHL 1,000 ML 150 ML IV CONT ×2 (01:10→08:10)
[2024-08-06 01:18] LABS: Glucose Point of Care 223 mg/dl (65-105)
[2024-08-06] MEDS: ACETAMINOPHEN 325 MG TABLET 650 MG PO (01:18)
[2024-08-06 02:14] LABS: Glucose Point of Care 267 mg/dl (65-105)
[2024-08-06 03:13] LABS: Glucose Point of Care 211 mg/dl (65-105)
[2024-08-06 04:18] LABS: Glucose Point of Care 220 mg/dl (65-105)
[2024-08-06 04:40] LABS: Basophils Percent Auto 0.1 % (0.2-1.2); Hematocrit 40.9 % (42.0-52.0); Hemoglobin 13.5 g/dL (14.0-18.0); Immature Granulocyte Absolute 0.12 K/mm3 (0.00-0.031); Immature Granulocyte Percent A 0.7 % (0-0.5); Immature Platelet Fraction Pct 13.3 % (0.9-11.2); Lymphocytes Absolute Auto 1.06 K/mm3 (0.9-3.2); Lymphocytes Percent Auto 5.9 % (18.3-44.2); Mean Corpuscular Hemoglobin 28.4 pg (26-34); Mean Corpuscular Volume 86.1 fl (80-100); Monocytes Absolute Auto 0.8 K/mm3 (0.1-0.6); Monocytes Percent Auto 4.2 % (2.6-8.5); Neutrophils Absolute Auto 16.1 K/mm3 (1.3-6.7); Neutrophils Percent Auto 89.1 % (45.5-73.1); Platelet Count Result 178 k/mm3 (150-375); Red Blood Count 4.75 M/mm3 (4.6-6.20); Red Cell Distribution Width 12.7 % (11.5-14.5); White Blood Count 18.1 K/mm3 (4.5-10.0)
[2024-08-06 04:54] LABS: Anion Gap 21 mmol/L (4-12); Blood Urea Nitrogen 16 mg/dL (9-20); Carbon Dioxide 7 mmol/L (22-30); Chloride 105 mmol/L (98-107); Estimated CRCL calculation 97 ml/min; Estimated Glomerular Filt Rate > 60; Glucose 196 mg/dL (65-110); Phosphorus 2.7 mg/dL (2.5-4.5); Potassium 4.9 mmol/L (3.4-5.0); Sodium 133 mmol/L (137-145)
[2024-08-06 05:30] LABS: Glucose Point of Care 201 mg/dl (65-105)
[2024-08-06 06:11] LABS: Glucose Point of Care 228 mg/dl (65-105)
[2024-08-06 07:10] LABS: Glucose Point of Care 200 mg/dl (65-105)
[2024-08-06 08:13] LABS: Glucose Point of Care 202 mg/dl (65-105)
[2024-08-06] MEDS: ONDANSETRON INJ 4 MG/2 ML VIAL IV PUSH (08:32)
[2024-08-06] MEDS: PANTOPRAZOLE SODIUM IV 40 MG VIAL IV PUSH (08:32)
[2024-08-06] MEDS: ENOXAPARIN 40 MG/0.4 ML SYRINGE SUB-Q (08:32)
[2024-08-06 08:46] LABS: Lactic Acid Reflex 0.6 mmol/L (0.7-2.0)
[2024-08-06 08:50] LABS: Anion Gap 18 mmol/L (4-12); Blood Urea Nitrogen 12 mg/dL (9-20); Calcium 9.2 mg/dL (8.4-10.2); Carbon Dioxide 9 mmol/L (22-30); Chloride 106 mmol/L (98-107); Estimated CRCL calculation 106 ml/min; Estimated Glomerular Filt Rate > 60; Glucose 170 mg/dL (65-110); Potassium 4.4 mmol/L (3.4-5.0); Sodium 133 mmol/L (137-145)
[2024-08-06 09:07] LABS: Glucose Point of Care 179 mg/dl (65-105)
[2024-08-06] MEDS: KCL 20 MEQ/D5/0.45% SOD CHL 1,000 ML 200 ML IV CONT ×3 (09:26→20:00)
--- NOTE | 2024-08-06 09:56 | P.CONIN_ITS ---
Assessment and Plan Assessment and plan (1) DKA (diabetic ketoacidosis): Qualifiers: Diabetes mellitus complication detail: without coma Diabetes mellitus type: type 2 Qualified Code(s): E11.10 - Type 2 diabetes mellitus with ketoacidosis without coma Code(s): E11.10 - Type 2 diabetes mellitus with ketoacidosis without coma Status: Acute Assessment and Plan: - history of type 2 diabetes on insulin, metformin, and Jardiance. Has been out of insulin. -patient received IV fluid bolus and will be continue IV fluids -continue insulin infusion - trend BMP Q4H, repeat Mag and Phos -- NPO - oil and gas exploration technician consulted - research hydraulic engineer consulted (2) Nausea vomiting and diarrhea: Code(s): R11.2 - Nausea with vomiting, unspecified; R19.7 - Diarrhea, unspecified Status: Acute Assessment and Plan: CT abd/pelvis -> no acute intra-abdominal/pelvic process noted. Normal LFTs and lipase suspect symptoms secondary to DKA. Continue supportive treatment (3) Chest pain: Code(s): R07.9 - Chest pain, unspecified Status: Acute Assessment and Plan: Patient complains of lower chest and upper abdominal pain which started after nausea vomiting and worse with deep breathing coughing and vomiting. Ches/abdominal t pain is atypical and noncardiac from history and presentation CT chest abdomen pelvis negative Initial troponin negative EKG showed sinus tachycardia with nonspecific ST-T changes. Will repeat EKG Lipase and LFTs negative (4) Abdominal pain: Code(s): R10.9 - Unspecified abdominal pain Status: Acute Assessment and Plan: See above Continue Protonix and add p.r.n. Tums Plan Diet: NPO GI Prophylaxis: Pantoprazole DVT Prophylaxis: Lovenox SQ Lines/Tubes: Peripheral IV Code Status: Full code Total Critical Care Time - 30 minutes Due to a high probability of clinically significant, life threatening deterioration, the patient required my highest level of preparedness to intervene emergently and I personally spent this critical care time directly and personally managing the patient. This critical care time included obtaining a history; examining the patient; pulse oximetry; ordering and review of studies; arranging urgent treatment with development of a management plan; evaluation of patient's response to treatment; frequent reassessment; and discussions with other providers. It was exclusive of separately billable procedures and treating other patients and teaching time. Please see Assessment and Plan section and the rest of the note for further information on patient assessment and treatment [facility] Consult Note Consult date: 08/06/24 Reason for consult: DKA HPI: Nomi Elliott is a 44 year old male male with past medical history of type 2 diabetes who is on insulin metformin and Jardiance presented yesterday chief complaint with nausea vomiting and abdominal pain periods patient has been out of his insulin for last 1 week and started having symptoms 3 days ago. He also states the pain went up to his chest. Pain was worse with deep breathing. Described pain 6/10, it did not radiate anywhere else, intermittent, worse with nausea and vomiting. He denied any fever dysuria hematuria hematochezia melena diarrhea. All other systems were reviewed and were negative Workup in the ER showed vitals 98? F, HR 91, R 15, 141/74, and 99% on RA. WBC 20.2, no anemia, ABG showed a pH of 7.019/CO2 14.7/HC03 3.7, sodium 136, creatinine 1.46 and GFR 53 (no previous available for comparison), lactic 4.2, glucose 291, phosphorus 8.9, albumin 5.4, beta hydroxy 12.8, TSH within normal limits. ETOH negative. Viral PCR negative. Patient was diagnosed with DKA. He was given IV fluid bolus and started on IV fluids and insulin infusion and admitted to ICU. This morning he states pain is better but still there and would like some pain medication. He denied any nausea vomiting at this time. Review of Systems 2 Review of Systems: All systems reviewed & are unremarkable except as noted in HPI and below (HPI) [facility] Past Medical History Medical History DKA (diabetic ketoacidosis) DM2 (diabetes mellitus, type 2) Social History Social History Smoking status: Never smoker Alcohol intake: former Drinks per week: 3 Substance use: former Substance use type: marijuana Last use: 08/04/2024 Do You Feel Safe in your Home?: Yes Lack of Transportation: No Lack of Food: Never True Current Housing: Decline to Answer Concerned About Future Housing: No Difficulty Paying Gas/Electric Bills: No Difficulty Paying for Meds: No Currently Unemployed: No Education: Decline to Answer Difficulty w/ Childcare or Family Care: No Spiritual care concerns: No Meds Home Medications and Allergies Home Medications ?Medication ?Instructions ?Recorded ?Confirmed ?Type empagliflozin 25 mg tablet 25 mg PO DAILY 08/05/24 08/05/24 History (Jardiance) insulin glargine 100 unit/mL (3 40 unit subcut QPM 08/05/24 08/05/24 History mL) subcutaneous pen (Basaglar KwikPen U-100 Insulin) metformin 500 mg tablet,extended 500 mg PO QPM 08/05/24 08/05/24 History release 24 hr Allergies Allergy/AdvReac Type Severity Reaction Status Date / Time No Known Allergies Allergy Verified 08/05/24 19:44 Vital Signs Vital Signs - 24 hr 08/05/24 14:42 08/05/24 15:37 08/05/24 15:49 Temperature 36.6 C Pulse Rate 91 95 95 Respiratory Rate 15 17 16 Blood Pressure 141/74 H 151/131 H 137/79 Pulse Oximetry 99 Oxygen Delivery Room Air 08/05/24 16:15 08/05/24 16:30 08/05/24 16:43 Temperature Pulse Rate 100 92 101 H Respiratory Rate 15 18 16 Blood Pressure 143/80 H 109/84 112/64 Pulse Oximetry 100 Oxygen Delivery 08/05/24 16:45 08/05/24 17:00 08/05/24 17:03 Temperature Pulse Rate 100 105 H 102 H Respiratory Rate 15 19 16 Blood Pressure 119/58 L 131/96 H Pulse Oximetry 100 100 Oxygen Delivery 08/05/24 17:15 08/05/24 17:30 08/05/24 17:52 Temperature Pulse Rate 108 H 105 H 103 H Respiratory Rate 16 16 14 Blood Pressure 138/123 H 129/83 162/91 H Pulse Oximetry Oxygen Delivery 08/05/24 18:00 08/05/24 18:15 08/05/24 18:42 Temperature 36.7 C 36.6 C 36.6 C Pulse Rate 101 H 97 Respiratory Rate 14 13 Blood Pressure 149/77 H 147/85 H Pulse Oximetry 100 85 L Oxygen Delivery 08/05/24 20:00 08/05/24 20:00 08/05/24 20:00 Temperature 36.8 C Pulse Rate 114 H 97 Respiratory Rate 20 Blood Pressure 154/71 H Pulse Oximetry 100 100 Oxygen Delivery Room Air 08/05/24 22:00 08/05/24 22:00 08/06/24 00:00 Temperature Pulse Rate 96 96 Respiratory Rate 16 Blood Pressure 135/77 Pulse Oximetry 100 100 Oxygen Delivery Room Air 08/06/24 00:00 08/06/24 00:00 08/06/24 02:00 Temperature 36.9 C Pulse Rate 98 99 92 Respiratory Rate 16 Blood Pressure 138/71 Pulse Oximetry 100 Oxygen Delivery 08/06/24 02:00 08/06/24 04:00 08/06/24 04:00 Temperature 36.8 C Pulse Rate 92 86 Respiratory Rate 16 14 Blood Pressure 106/62 114/69 Pulse Oximetry 99 100 100 Oxygen Delivery Room Air 08/06/24 04:00 08/06/24 06:00 08/06/24 06:00 Temperature Pulse Rate 87 80 80 Respiratory Rate 12 Blood Pressure 153/82 H Pulse Oximetry 100 Oxygen Delivery 08/06/24 08:00 Temperature 36.7 C Pulse Rate 81 Respiratory Rate 12 Blood Pressure 161/86 H Pulse Oximetry 99 Oxygen Delivery Exam 2 Narrative: General: Pt is alert awake and in NAD Lungs/Chest: Trachea central Clear BS B/L, No crackles or wheezing. Cardiac: RRR. Normal S1 S2. No murmurs Circulation: Pedal pulses are intact and symmetrical. Abdomen: Normal bowel sounds.. Soft. Mild diffuse tenderness to palpation on the abdomen, no distention or guarding Extremities: No clubbing, cyanosis or edema. Warm : Newman in place Neurologic: Follows commands. Moves all 4 extremities PERRL Skin: No Rash Results Labs 08/06/24 04:11 08/06/24 12:07 Labs: Impressions Chest X-Ray 08/05/24 16:42 IMPRESSION: 1: NO ACUTE CARDIOPULMONARY DISEASE. Abdomen/Pelvis CT 08/05/24 16:50 IMPRESSION: 1. No acute intra-abdominal/pelvic process. Short CBC 08/05/24 08/06/24 Range/Units 14:55 04:11 WBC 20.2 H 18.1 H (4.5-10.0) K/mm3 Hgb 14.8 13.5 L (14.0-18.0) g/dL Hct 48.4 40.9 L (42.0-52.0) % Plt Count 201 178 (150-375) k/mm3 BMP 08/05/24 08/05/24 08/05/24 14:55 16:20 20:24 Sodium 136 L 137 135 L Potassium 5.0 5.3 H 4.5 Chloride 100 102 105 Carbon Dioxide < 5 L < 5 L < 5 L BUN 24 H 24 H 21 H Creatinine 1.46 H 1.24 0.98 Glucose 291 H 288 H 189 H Calcium 9.9 9.7 9.1 08/06/24 08/06/24 08/06/24 00:18 04:11 08:23 Sodium 134 L 133 L 133 L Potassium 5.1 H 4.9 4.4 Chloride 105 105 106 Carbon Dioxide 6 L 7 L 9 L BUN 17 16 12 Creatinine 0.83 0.81 0.75 Glucose 182 H 196 H 170 H Calcium 9.1 9.0 9.2 Cardiac Enzymes 08/05/24 Range/Units 14:55 Troponin I < 0.012 (0.000-0.034) ng/mL Liver Function 08/05/24 08/05/24 Range/Units 14:55 16:20 Total Bilirubin 0.9 0.8 (0.2-1.3) mg/dL AST 37 35 (17-59) U/L ALT 38 34 (6-50) U/L Alkaline Phosphatase 120 111 (38-126) U/L Albumin 5.4 H 4.8 (3.5-5.1) g/dL Urine 08/05/24 Range/Units 16:23 Urine Color Yellow (Yellow) Urine Appearance Clear (Clear) Urine pH 5.0 (5.0-9.0) Ur Specific [place] 1.024 (1.001-1.035) Urine Protein 2+ H (Negative) mg/dL Urine Glucose (UA) 3+ H (Negative) mg/dL
--- NOTE | 2024-08-06 10:04 | ECG_ITS ---
Test Date: 2024-08-06 10:40:58 Measurements Intervals [place] Rate: 80 P: 81 SD: 124 QRS: 69 QRSD: 90 T: 50 QT: 398 QTc: 460 Interpretive Statements SINUS RHYTHM CANNOT R/O SEPTAL INFARCT, AGE INDETERMINATE BORDERLINE ST ABNORMALITY- INFERIOR LEADS ABNORMAL ECG Compared to ECG 08/05/2024 15:09:14 No significant changes Electronically Signed On 08-06-2024 11:33:07 CDT by Broderick Miranda D.O.
[2024-08-06 10:10] LABS: Glucose Point of Care 187 mg/dl (65-105)
--- NOTE | 2024-08-06 11:07 | PCFNICU ---
ICU Rounding Note: Pt current nutrition is NPO. Nutrition recommendation: advancing diet as tolerated to DBCC diet when medically able and diet supplements of Glucerna shakes TID for additional 240 kcal and 10 gm protein. Last recorded weight is 68.2 kg Bowel Motility: +Bm reported / Labs Reviewed: Glu 170, Na 133, Hct 40.9, Hgb 13.5, HbA1c > 14% Meds Noted: Insulin, Protonix, Lovenox. Skin: WNL Additional Notes: Patient seen today, still having some nausea and lethargy. He states to some weight loss, unsure on who much and appetite has been very poor. No insulin noted for at least 1 week and has missed doctors appointments. Will continue to monitor daily. Following daily in ICU rounds.
[2024-08-06 11:12] LABS: Glucose Point of Care 201 mg/dl (65-105)
[2024-08-06 11:26] LABS: Troponin I 0.923 ng/mL (0.000-0.034)
[2024-08-06 12:11] LABS: Glucose Point of Care 218 mg/dl (65-105)
[2024-08-06 12:43] LABS: Anion Gap 14 mmol/L (4-12); Blood Urea Nitrogen 11 mg/dL (9-20); Calcium 8.9 mg/dL (8.4-10.2); Carbon Dioxide 12 mmol/L (22-30); Chloride 106 mmol/L (98-107); Estimated CRCL calculation 116 ml/min; Estimated Glomerular Filt Rate > 60; Glucose 191 mg/dL (65-110); Potassium 4.3 mmol/L (3.4-5.0); Sodium 132 mmol/L (137-145)
[2024-08-06 13:12] LABS: Glucose Point of Care 189 mg/dl (65-105)
[2024-08-06] MEDS: HYDROcodone/acetaminophen (*CRX) 5-325 MG TABLET 1 TAB PO (13:37)
[2024-08-06] MEDS: METOPROLOL TARTRATE 12.5 MG TABLET PO ×2 (13:37→20:08)
[2024-08-06] MEDS: ASPIRIN 325 MG ENTERIC TABLET PO (13:38)
[2024-08-06 14:16] LABS: Glucose Point of Care 232 mg/dl (65-105)
[2024-08-06] MEDS: ATORVASTATIN 40 MG TABLET 80 MG PO (14:40)
--- NOTE | 2024-08-06 14:41 | PM.CNCAR ---
Assessment and Plan Assessment and plan (1) NSTEMI (non-ST elevated myocardial infarction): Code(s): I21.4 - Non-ST elevation (NSTEMI) myocardial infarction Status: Acute (2) DKA (diabetic ketoacidosis): Qualifiers: Diabetes mellitus complication detail: without coma Diabetes mellitus type: type 2 Qualified Code(s): E11.10 - Type 2 diabetes mellitus with ketoacidosis without coma Code(s): E11.10 - Type 2 diabetes mellitus with ketoacidosis without coma Status: Acute Plan 1. NSTEMI 2. Diabetic ketoacidosis, improving. 3. Premature CAD s/p FERNANDO x 2 to the proximal LAD in 2014 4. Ischemic cardiomyopathy with LVEF 41% in 2014 5. Uncontrolled type 2 diabetes mellitus with history of multiple admissions in the past for DKA (last admission 04/2024). Hgb A1c 14. In 2014 (at the age of 34), patient had atypical chest pain. However, had rising troponin levels and dynamic EKG changes. Underwent LHC which showed 100% occlusion of proximal LAD s/p successful PCI with FERNANDO x 2. Also noted to have occluded diagonals, [employer] of the RCA, and moderate LCX disease. Had ischemic cardiomyopathy with LVEF 41%. Has not followed up with Cardiology since 2015. PLAN: -Continue to trend troponins until peak. -Start ASA 81mg once daily. -Start high intensity statin. Obtain lipid panel. -Continue beta francia. -Will start Heparin drip. -TTE ordered and pending. -Plan for LHC tomorrow. Discussed procedure with the patient, who is agreeable. NPO at midnight. History of Present Illness History of Present Illness Consult date/time: 08/06/24 14:41 Requesting physician: Tanner Moser MD Consult reason: chest pain Reason For Visit: DKA Narrative: Nomi is a 44 year old male with premature CAD s/p FERNANDO x 2 to the proximal LAD in 2014, ischemic cardiomyopathy with LVEF 41% in 2014, uncontrolled type 2 diabetes mellitus with history of multiple admissions in the past for DKA who presented to [facility] 08/05 for nausea and vomiting. Found to be in DKA. Reports intermittent substernal / left sided chest pain that has been occurring for two days. Patient states he ran out of his insulin for about one week and has been taking only his oral medications. Does not see a cosmetic dentist and has not followed up with cardiology since 2015 from what I can see. EKGs show sinus rhythm, old septal infarct. Initial troponin negative. Repeat at 0.923. Hgb A1c is 14. Outside records from [facility] were personally reviewed and summarized below. In 2015, patient had atypical chest pain. However, had rising troponin levels and dynamic EKG changes. Underwent LHC which showed 100% occlusion of proximal LAD s/p successful PCI with FERNANDO x 2. Also noted to have occluded diagonals, [employer], and moderate LCX disease. Had ischemic cardiomyopathy with LVEF 41%. Review of Systems Review of Systems: All systems reviewed & are unremarkable except as noted in HPI and below (HPI) [facility] Past Medical History Medical History DKA (diabetic ketoacidosis) DM2 (diabetes mellitus, type 2) Social History Social History Smoking status: Never smoker Alcohol intake: former Drinks per week: 3 Substance use: former Substance use type: marijuana Last use: 08/04/2024 Do You Feel Safe in your Home?: Yes Lack of Transportation: No Lack of Food: Never True Current Housing: Decline to Answer Concerned About Future Housing: No Difficulty Paying Gas/Electric Bills: No Difficulty Paying for Meds: No Currently Unemployed: No Education: Decline to Answer Difficulty w/ Childcare or Family Care: No Spiritual care concerns: No Meds Home Medications and Allergies Home Medications ?Medication ?Instructions ?Recorded ?Confirmed ?Type empagliflozin 25 mg tablet 25 mg PO DAILY 08/05/24 08/05/24 History (Jardiance) insulin glargine 100 unit/mL (3 40 unit subcut QPM 08/05/24 08/05/24 History mL) subcutaneous pen (Basaglar KwikPen U-100 Insulin) metformin 500 mg tablet,extended 500 mg PO QPM 08/05/24 08/05/24 History release 24 hr Allergies Allergy/AdvReac Type Severity Reaction Status Date / Time No Known Allergies Allergy Verified 08/05/24 19:44 Vital Signs Vital Signs - 24 hr 08/05/24 14:42 08/05/24 15:37 08/05/24 15:49 Temperature 36.6 C Pulse Rate 91 95 95 Respiratory Rate 15 17 16 Blood Pressure 141/74 H 151/131 H 137/79 Pulse Oximetry 99 Oxygen Delivery Room Air 08/05/24 16:15 08/05/24 16:30 08/05/24 16:43 Temperature Pulse Rate 100 92 101 H Respiratory Rate 15 18 16 Blood Pressure 143/80 H 109/84 112/64 Pulse Oximetry 100 Oxygen Delivery 08/05/24 16:45 08/05/24 17:00 08/05/24 17:03 Temperature Pulse Rate 100 105 H 102 H Respiratory Rate 15 19 16 Blood Pressure 119/58 L 131/96 H Pulse Oximetry 100 100 Oxygen Delivery 08/05/24 17:15 08/05/24 17:30 08/05/24 17:52 Temperature Pulse Rate 108 H 105 H 103 H Respiratory Rate 16 16 14 Blood Pressure 138/123 H 129/83 162/91 H Pulse Oximetry Oxygen Delivery 08/05/24 18:00 08/05/24 18:15 08/05/24 18:42 Temperature 36.7 C 36.6 C 36.6 C Pulse Rate 101 H 97 Respiratory Rate 14 13 Blood Pressure 149/77 H 147/85 H Pulse Oximetry 100 85 L Oxygen Delivery 08/05/24 20:00 08/05/24 20:00 08/05/24 20:00 Temperature 36.8 C Pulse Rate 114 H 97 Respiratory Rate 20 Blood Pressure 154/71 H Pulse Oximetry 100 100 Oxygen Delivery Room Air 08/05/24 22:00 08/05/24 22:00 08/06/24 00:00 Temperature Pulse Rate 96 96 Respiratory Rate 16 Blood Pressure 135/77 Pulse Oximetry 100 100 Oxygen Delivery Room Air 08/06/24 00:00 08/06/24 00:00 08/06/24 02:00 Temperature 36.9 C Pulse Rate 98 99 92 Respiratory Rate 16 Blood Pressure 138/71 Pulse Oximetry 100 Oxygen Delivery 08/06/24 02:00 08/06/24 04:00 08/06/24 04:00 Temperature 36.8 C Pulse Rate 92 86 Respiratory Rate 16 14 Blood Pressure 106/62 114/69 Pulse Oximetry 99 100 100 Oxygen Delivery Room Air 08/06/24 04:00 08/06/24 06:00 08/06/24 06:00 Temperature Pulse Rate 87 80 80 Respiratory Rate 12 Blood Pressure 153/82 H Pulse Oximetry 100 Oxygen Delivery 08/06/24 08:00 08/06/24 10:00 08/06/24 10:00 Temperature 36.7 C 36.7 C Pulse Rate 81 80 79 Respiratory Rate 12 11 L Blood Pressure 161/86 H 160/97 H Pulse Oximetry 99 99 Oxygen Delivery 08/06/24 12:00 08/06/24 12:00 08/06/24 13:37 Temperature 36.2 C L Pulse Rate 80 75 76 Respiratory Rate 15 Blood Pressure 153/71 H Pulse Oximetry 100 Oxygen Delivery 08/06/24 14:00 Temperature 36.7 C Pulse Rate 71 Respiratory Rate 13 Blood Pressure 149/76 H Pulse Oximetry 99 Oxygen Delivery Exam Const: General: no acute distress Other: Sleepy HENMT: Mouth: Yes moist mucous membranes Eyes: General: appearance normal, both eyes and all related structures Sclera: sclerae normal Resp: Effort & Inspection: normal respiratory effort Cardio: Rate: regular rate Rhythm: regular rhythm Heart sounds: no murmurs Skin: General skin exam: normal color Neuro: Speech: normal speech Psych: Mental Status: mental status grossly normal Affect: normal affect Results Labs and Meds 08/06/24 04:11 08/06/24 12:07 Lab results: Cardiac Enzymes 08/05/24 08/05/24 08/06/24 Range/Units 14:55 16:20 08:23 AST 37 35 (17-59) U/L Troponin I < 0.012 0.923 H* (0.000-0.034) ng/mL CBC 08/05/24 08/06/24 Range/Units 14:55 04:11 WBC 20.2 H 18.1 H (4.5-10.0) K/mm3 RBC 5.30 4.75 (4.6-6.20) M/mm3 Hgb 14.8 13.5 L (14.0-18.0) g/dL Hct 48.4 40.9 L (42.0-52.0) % Plt Count 201 178 (150-375) k/mm3 Lymph # (Auto) Not Reportable 1.06 Kinney # (Auto) Not Reportable 0.8 H Eos # (Auto) Not Reportable 0.0 Baso # (Auto) Not Reportable 0.0 Comprehensive Metabolic Panel 08/05/24 08/05/24 08/05/24 Range/Units 14:55 16:20 20:24 Sodium 136 L 137 135 L (137-145) mmol/L Potassium 5.0 5.3 H 4.5 (3.4-5.0) mmol/L Chloride 100 102 105 (98-107) mmol/L Carbon Dioxide < 5 L < 5 L < 5 L (22-30) mmol/L BUN 24 H 24 H 21 H (9-20) mg/dL Creatinine 1.46 H 1.24 0.98 (0.7-1.3) mg/dL Glucose 291 H 288 H 189 H (65-110) mg/dL Calcium 9.9 9.7 9.1 (8.4-10.2) mg/dL AST 37 35 (17-59) U/L ALT 38 34 (6-50) U/L Alkaline Phosphatase 120 111 (38-126) U/L Total Protein 8.9 H 7.8 (6.3-8.2) g/dL Albumin 5.4 H 4.8 (3.5-5.1) g/dL 08/06/24 08/06/24 08/06/24 Range/Units 00:18 04:11 08:23 Sodium 134 L 133 L 133 L (137-145) mmol/L Potassium 5.1 H 4.9 4.4 (3.4-5.0) mmol/L Chloride 105 105 106 (98-107) mmol/L Carbon Dioxide 6 L 7 L 9 L (22-30) mmol/L BUN 17 16 12 (9-20) mg/dL Creatinine 0.83 0.81 0.75 (0.7-1.3) mg/dL Glucose 182 H 196 H 170 H (65-110) mg/dL Calcium 9.1 9.0 9.2 (8.4-10.2) mg/dL AST (17-59) U/L ALT (6-50) U/L Alkaline Phosphatase (38-126) U/L Total Protein (6.3-8.2) g/dL Albumin (3.5-5.1) g/dL 08/06/24 Range/Units 12:07 Sodium 132 L (137-145) mmol/L Potassium 4.3 (3.4-5.0) mmol/L Chloride 106 (98-107) mmol/L Carbon Dioxide 12 L (22-30) mmol/L BUN 11 (9-20) mg/dL Creatinine 0.68 L (0.7-1.3) mg/dL Glucose 191 H (65-110) mg/dL Calcium 8.9 (8.4-10.2) mg/dL AST (17-59) U/L ALT (6-50) U/L Alkaline Phosphatase (38-126) U/L Total Protein (6.3-8.2) g/dL Albumin (3.5-5.1) g/dL Intake and Output 08/05/24 08/06/24 08/06/24 23:59 07:59 15:59 Intake Total 1588.6 2008.9 1197.6 Output Total 600 1900 1300 Balance 988.6 108.9 -102.4 Intake: IV 1588.6 2007.9 1197.6 Dextrose 5%/0.45% Sod Chl 1,000 2000 190 ml @ 200 mls/hr IV CONT .Q5H [facility] Rx#:[id number] Insulin Human Regular (*Bkc) 20.3 8.9 7.6 100 units In Sodium Chloride 0. 9% IV 99 ml @ 1 UNITS/HR 1 mls/ hr IV CONT .Q24H SKYALR Rx#: [id number] KCl 20 Meq/D5/0.45% Sod Chl 1, 1000 000 ml @ 200 mls/hr IV CONT . Q5H [facility] Rx#:[id number] Lactated Ringers 1,000 ml @ 125 1445.8 mls/hr IV CONT .Q8H [facility] Rx#: [id number] Sodium Chloride 0.9% IV 1,000 122.5 ml @ 150 mls/hr IV CONT .Q6H40M [facility] Rx#:[id number] Output: Urine 600 1700 1300 Emesis 200 Other: Number of Bowel Movements Today 1 # Unmeasured Emesis 1 Patient Weight 08/06/24 23:59 Weight 68.2 kg
[2024-08-06 15:09] LABS: Basophils Percent Auto 0.1 % (0.2-1.2); Hemoglobin 13.4 g/dL (14.0-18.0); Immature Granulocyte Absolute 0.08 K/mm3 (0.00-0.031); Immature Granulocyte Percent A 0.5 % (0-0.5); Lymphocytes Absolute Auto 0.85 K/mm3 (0.9-3.2); Lymphocytes Percent Auto 5.7 % (18.3-44.2); Mean Corpuscular HGB Conc 32.7 g/dl (32-36); Mean Corpuscular Hemoglobin 28.2 pg (26-34); Mean Corpuscular Volume 86.3 fl (80-100); Mean Platelet Volume 12.6 fl (7.4-10.4); Monocytes Absolute Auto 0.9 K/mm3 (0.1-0.6); Monocytes Percent Auto 6.1 % (2.6-8.5); Neutrophils Percent Auto 87.6 % (45.5-73.1); Platelet Count Result 171 k/mm3 (150-375); Red Blood Count 4.75 M/mm3 (4.6-6.20); Red Cell Distribution Width 12.9 % (11.5-14.5); White Blood Count 14.9 K/mm3 (4.5-10.0)
[2024-08-06 15:19] LABS: Glucose Point of Care 204 mg/dl (65-105)
[2024-08-06 15:20] LABS: HDL Direct 42 mg/dL; Triglycerides 110 mg/dL (<150)
[2024-08-06 15:35] LABS: INR 0.9; Partial Thromboplastin Time 28.2 Seconds (22.3-36.8); Prothrombin Time 12.2 Seconds (11.1-14.7)
[2024-08-06 15:41] LABS: Troponin I 0.751 ng/mL (0.000-0.034)
[2024-08-06 15:51] LABS: Cholesterol 416 mg/dL (0-200); LDL Cholesterol Direct 252 mg/dL
[2024-08-06] MEDS: HEPARIN SODIUM 5,000 UNITS/ML VIAL 4000 UNITS IV PUSH (15:52)
[2024-08-06] MEDS: HEPARIN SOD/D5W 100 UNITS/ML 25,000 UNITS/250 ML BAG 8 UNITS IV CONT (15:56)
[2024-08-06 16:08] LABS: Glucose Point of Care 207 mg/dl (65-105)
[2024-08-06 16:28] LABS: Alanine Aminotransferase 27 U/L (6-50); Albumin Level 4.2 g/dL (3.5-5.1); Alkaline Phosphatase 78 U/L (38-126); Anion Gap 13 mmol/L (4-12); Aspartate Amino Transferase 37 U/L (17-59); Bilirubin,Total 0.8 mg/dL (0.2-1.3); Blood Urea Nitrogen 9 mg/dL (9-20); Carbon Dioxide 14 mmol/L (22-30); Chloride 105 mmol/L (98-107); Estimated CRCL calculation 115 ml/min; Estimated Glomerular Filt Rate > 60; Glucose 189 mg/dL (65-110); Potassium 4.3 mmol/L (3.4-5.0); Sodium 132 mmol/L (137-145); Total Protein 7.1 g/dL (6.3-8.2)
[2024-08-06 17:05] LABS: Glucose Point of Care 205 mg/dl (65-105)
[2024-08-06 18:08] LABS: Glucose Point of Care 195 mg/dl (65-105)
[2024-08-06 19:03] LABS: Glucose Point of Care 212 mg/dl (65-105)
[2024-08-06] MEDS: CALCIUM CARBONATE (TUMS) 500 MG (200 MG ELEMENTAL) PO (20:14)
[2024-08-06 20:21] LABS: Glucose Point of Care 196 mg/dl (65-105)
[2024-08-06 20:39] LABS: Anion Gap 10 mmol/L (4-12); Blood Urea Nitrogen 8 mg/dL (9-20); Calcium 8.9 mg/dL (8.4-10.2); Carbon Dioxide 16 mmol/L (22-30); Chloride 105 mmol/L (98-107); Estimated CRCL calculation 125 ml/min; Estimated Glomerular Filt Rate > 60; Glucose 203 mg/dL (65-110); Potassium 4.4 mmol/L (3.4-5.0); Sodium 131 mmol/L (137-145); Troponin I 0.648 ng/mL (0.000-0.034)
[2024-08-06 21:21] LABS: Glucose Point of Care 227 mg/dl (65-105)
[2024-08-06 22:10] LABS: Glucose Point of Care 219 mg/dl (65-105)
[2024-08-06 22:24] LABS: Partial Thromboplastin Time 76.2 Seconds (22.3-36.8)
[2024-08-06 23:08] LABS: Glucose Point of Care 220 mg/dl (65-105)
[2024-08-07] VITALS (17 sets, daily range): BP systolic 111–159; BP diastolic 66–95; PULSE 70–87; RESP 12–24; TEMP 36.6–37.1; O2SAT 98–100; BMI 16.7
[2024-08-07 00:11] LABS: Glucose Point of Care 218 mg/dl (65-105)
[2024-08-07 00:35] LABS: Anion Gap 9 mmol/L (4-12); Blood Urea Nitrogen 8 mg/dL (9-20); Carbon Dioxide 15 mmol/L (22-30); Chloride 105 mmol/L (98-107); Estimated CRCL calculation 123 ml/min; Estimated Glomerular Filt Rate > 60; Glucose 225 mg/dL (65-110); Potassium 4.4 mmol/L (3.4-5.0); Sodium 129 mmol/L (137-145)
[2024-08-07] MEDS: KCL 20 MEQ/D5/0.45% SOD CHL 1,000 ML 200 ML IV CONT ×2 (00:55→06:10)
[2024-08-07 01:13] LABS: Glucose Point of Care 247 mg/dl (65-105)
[2024-08-07 02:12] LABS: Glucose Point of Care 256 mg/dl (65-105)
[2024-08-07 03:13] LABS: Glucose Point of Care 231 mg/dl (65-105)
[2024-08-07 04:16] LABS: Basophils Percent Auto 0.2 % (0.2-1.2); Eosinophils Percent Auto 0.1 % (0-4.4); Hemoglobin 13.1 g/dL (14.0-18.0); Immature Granulocyte Absolute 0.03 K/mm3 (0.00-0.031); Immature Granulocyte Percent A 0.3 % (0-0.5); Lymphocytes Absolute Auto 0.93 K/mm3 (0.9-3.2); Mean Corpuscular HGB Conc 33.6 g/dl (32-36); Mean Corpuscular Hemoglobin 27.9 pg (26-34); Mean Corpuscular Volume 83.2 fl (80-100); Mean Platelet Volume 12.7 fl (7.4-10.4); Monocytes Absolute Auto 0.5 K/mm3 (0.1-0.6); Neutrophils Absolute Auto 8.8 K/mm3 (1.3-6.7); Neutrophils Percent Auto 85.4 % (45.5-73.1); Platelet Count Result 162 k/mm3 (150-375); Red Blood Count 4.69 M/mm3 (4.6-6.20); Red Cell Distribution Width 12.8 % (11.5-14.5); White Blood Count 10.3 K/mm3 (4.5-10.0)
[2024-08-07 04:17] LABS: Glucose Point of Care 230 mg/dl (65-105)
[2024-08-07 04:31] LABS: Anion Gap 7 mmol/L (4-12); Blood Urea Nitrogen 7 mg/dL (9-20); Calcium 8.9 mg/dL (8.4-10.2); Carbon Dioxide 18 mmol/L (22-30); Chloride 106 mmol/L (98-107); Estimated CRCL calculation 129 ml/min; Estimated Glomerular Filt Rate > 60; Glucose 213 mg/dL (65-110); Magnesium 1.9 mg/dL (1.6-2.3); Phosphorus 1.4 mg/dL (2.5-4.5); Sodium 131 mmol/L (137-145)
[2024-08-07 04:37] LABS: Partial Thromboplastin Time 58.6 Seconds (22.3-36.8)
[2024-08-07 05:08] LABS: Glucose Point of Care 217 mg/dl (65-105)
[2024-08-07] MEDS: HEPARIN SODIUM 5,000 UNITS/ML VIAL 2500 UNITS IV PUSH (05:08)
[2024-08-07 06:16] LABS: Glucose Point of Care 220 mg/dl (65-105)
[2024-08-07 07:05] LABS: Glucose Point of Care 229 mg/dl (65-105)
[2024-08-07 08:22] LABS: Glucose Point of Care 239 mg/dl (65-105)
--- NOTE | 2024-08-07 08:30 | WPDINTPN ---
Progress Note: A&P Assessment and Plan (1) DKA (diabetic ketoacidosis): Qualifiers: Diabetes mellitus complication detail: without coma Diabetes mellitus type: type 2 Qualified Code(s): E11.10 - Type 2 diabetes mellitus with ketoacidosis without coma Code(s): E11.10 - Type 2 diabetes mellitus with ketoacidosis without coma Status: Acute Assessment and Plan: Anion gap has closed and symptoms resolve. I would start him on subcutaneous Lantus and insulin He is currently NPO for cardiac catheterization will resume diet after procedure depending on the results - nursing educator consulted - music historian consulted (2) Nausea vomiting and diarrhea: Code(s): R11.2 - Nausea with vomiting, unspecified; R19.7 - Diarrhea, unspecified Status: Acute Assessment and Plan: CT abd/pelvis -> no acute intra-abdominal/pelvic process noted. Normal LFTs and lipase suspect symptoms secondary to DKA. Symptoms resolved Continue supportive treatment (3) Chest pain: Code(s): R07.9 - Chest pain, unspecified Status: Acute Assessment and Plan: Patient complains of lower chest and upper abdominal pain which started after nausea vomiting and worse with deep breathing coughing and vomiting. Chest/abdominal pain was atypical and noncardiac from history and presentation When I initially interviewed the patient during my consultation he denied any history of coronary disease. There is no records in our chart and he was not in any cardiac medications His EKG was abnormal in troponin came back elevated and I consult Cardiology. Cardiology reviewed his out of hospital records and found the patient does have history of coronary disease in the past. Patient was started on aspirin beta-francia statin and heparin infusion. Patient is scheduled for a cardiac catheterization today Echo is ordered and pending Lipase and LFTs negative (4) Abdominal pain: Code(s): R10.9 - Unspecified abdominal pain Status: Acute Assessment and Plan: See above Continue Protonix and add p.r.n. Tums Plan Diet: NPO GI Prophylaxis: Pantoprazole DVT Prophylaxis: Currently on heparin drip Lines/Tubes: Peripheral IV Code Status: Full code Total Critical Care Time - 30 minutes Due to a high probability of clinically significant, life threatening deterioration, the patient required my highest level of preparedness to intervene emergently and I personally spent this critical care time directly and personally managing the patient. This critical care time included obtaining a history; examining the patient; pulse oximetry; ordering and review of studies; arranging urgent treatment with development of a management plan; evaluation of patient's response to treatment; frequent reassessment; and discussions with other providers. It was exclusive of separately billable procedures and treating other patients and teaching time. Please see Assessment and Plan section and the rest of the note for further information on patient assessment and treatment Subjective Date/time seen: 08/07/24 Overnight events reviewed. Afebrile. Denies any complaints this morning. States his chest pain abdominal pain has resolved. He denies any nausea vomiting. All other systems were reviewed and were negative. Continues to be on heparin drip, insulin drip and IV fluids Other Vitals acceptable Review of Systems Review of Systems: All systems reviewed & are unremarkable except as noted in HPI and below (HPI) Exam Narrative: General: Pt is alert awake and in NAD Lungs/Chest: Trachea central Clear BS B/L, No crackles or wheezing. Cardiac: RRR. Normal S1 S2. No murmurs Circulation: Pedal pulses are intact and symmetrical. Abdomen: Normal bowel sounds.. Soft. No guarding rigidity or tenderness Extremities: No clubbing, cyanosis or edema. Warm : Newman in place Neurologic: Follows commands. Moves all 4 extremities PERRL AO x3 Skin: No Rash Objective Data Vital Signs Vital Signs: Vital Signs - 24 hr 08/06/24 10:00 08/06/24 10:08/06/24 12:00 Temperature 36.7 C 36.2 C L Pulse Rate 80 79 80 Respiratory Rate 11 L 15 Blood Pressure 160/97 H 153/71 H Pulse Oximetry 99 100 Oxygen Delivery Fraction of Inspired Oxygen 08/06/24 12:00 08/06/24 13:37 08/06/24 14:00 Temperature 36.7 C Pulse Rate 75 76 71 Respiratory Rate 13 Blood Pressure 149/76 H Pulse Oximetry 99 Oxygen Delivery Fraction of Inspired Oxygen 08/06/24 14:00 08/06/24 16:00 08/06/24 16:00 Temperature 36.3 C L Pulse Rate 76 70 70 Respiratory Rate 12 Blood Pressure 125/87 Pulse Oximetry 100 Oxygen Delivery Fraction of Inspired Oxygen 08/06/24 18:00 08/06/24 18:00 08/06/24 20:00 Temperature 36.7 C Pulse Rate 68 66 Respiratory Rate 11 L Blood Pressure 135/83 Pulse Oximetry 99 100 Oxygen Delivery Room Air Fraction of Inspired Oxygen 08/06/24 20:00 08/06/24 20:00 08/06/24 20:08 Temperature 36.8 C Pulse Rate 66 69 68 Respiratory Rate 12 Blood Pressure 145/88 H Pulse Oximetry 100 Oxygen Delivery Fraction of Inspired Oxygen 08/06/24 21:00 08/06/24 22:00 08/06/24 22:00 Temperature Pulse Rate 70 75 75 Respiratory Rate 24 H 16 Blood Pressure 125/106 H Pulse Oximetry 99 99 Oxygen Delivery Room Air Fraction of Inspired Oxygen 21 08/07/24 00:00 08/07/24 00:00 08/07/24 00:00 Temperature 37.1 C Pulse Rate 74 78 Respiratory Rate 16 Blood Pressure 135/85 Pulse Oximetry 100 100 Oxygen Delivery Room Air Fraction of Inspired Oxygen 08/07/24 02:00 08/07/24 02:00 08/07/24 04:00 Temperature 36.9 C Pulse Rate 87 87 87 Respiratory Rate 18 12 Blood Pressure 159/90 H 111/79 Pulse Oximetry 99 99 Oxygen Delivery Fraction of Inspired Oxygen 08/07/24 04:00 08/07/24 04:00 08/07/24 06:00 Temperature Pulse Rate 87 79 Respiratory Rate 16 Blood Pressure 143/86 H Pulse Oximetry 99 99 Oxygen Delivery Room Air Fraction of Inspired Oxygen 08/07/24 06:00 08/07/24 07:36 Temperature 37.0 C Pulse Rate 79 76 Respiratory Rate 12 Blood Pressure 143/66 H Pulse Oximetry 99 Oxygen Delivery Fraction of Inspired Oxygen Intake/Output Intake/Output: Intake & Output 08/04/24 08/05/24 08/06/24 08/07/24 23:59 23:59 23:59 23:59 Intake Total 2588.6 4268.2 2047.7 Output Total 600 4000 1700 Balance 1988.6 268.2 347.7 Meds/Results Medications: Active Medications Generic Name Dose Route Start Last Admin Trade Name Freq PRN Reason Stop Dose Admin Acetaminophen 650 mg 08/05/24 16:24 08/06/24 01:18 Acetaminophen 325 Mg Tablet PO 650 mg Q4H PRN Administration Mild Pain (1-3) or Fever Hydrocodone Bitart/Acetaminophen 1 tab 08/05/24 16:24 08/06/24 13:37 Hydrocodone/Acetaminophen (*Crx) 5-325 Mg Tablet PO 1 tab Q6H PRN Administration Pain Rated 4-6 Aspirin 81 mg 08/07/24 09:00 Aspirin 81 Mg Enteric Tablet PO QAM [facility] Atorvastatin Calcium 80 mg 08/06/24 13:35 08/06/24 14:40 Atorvastatin 40 Mg Tablet PO 80 mg DAILY SKYLAR Administration Calcium Carbonate 200 mg 08/06/24 07:35 08/06/24 20:14 Calcium Carbonate (Tums) 500 Mg (200 Mg Elemental) PO 200 mg Q6H PRN Administration Indigestion Dextrose 12.5 gm 08/05/24 15:57 Dextrose 50% 25 Gm/50 Ml Syringe IV PUSH PRN PRN Hypoglycemia Protocol Glucagon 1 mg 08/05/24 15:57 Glucagon For Inj 1 Mg Vial IM PRN PRN Hypoglycemia Protocol Glucose 15 gm 08/05/24 15:57 Glucose Oral Gel 15 Gm Of Glucse In 37.5 Gm Tube PO PRN PRN Hypoglycemia Protocol Heparin Sodium (Porcine) 4,000 units 08/06/24 14:47 Heparin Sodium 5,000 Units/Ml Vial IV PUSH PRN PRN aPTT less than 55 seconds Heparin Sodium (Porcine) 2,500 units 08/06/24 14:47 08/07/24 05:08 Heparin Sodium 5,000 Units/Ml Vial IV PUSH 2,500 units PRN PRN Administration aPTT 55 - 70 seconds Dextrose 1,000 mls @ 100 mls/hr 08/05/24 15:57 Dextrose 5% 1,000 Ml IVPB PRN PRN Hypoglycemia Protocol Heparin Sodium/Dextrose 25,000 units in 250 mls @ 9 mls/hr 08/06/24 14:50 08/07/24 05:00 Heparin Sodium/D5w 100 Units/Ml IV CONT 900 units/hr .Q24H [facility] 9 mls/hr Titration Protocol 900 UNITS/HR Sodium Phosphate 20 mm/ 256.6667 mls @ 50 mls/hr 08/07/24 07:24 Dextrose IVPB 08/07/24 12:31 ONCE ONE Insulin Aspart 3 - 6 units 08/07/24 09:00 Insulin Aspart (*Bkc) 100 Units/Ml SUB-Q Q4HR [facility] Protocol Insulin Glargine 40 units 08/08/24 21:00 Insulin Glargine (*Bkc) 100 Units/Ml SUB-Q HS [facility] Insulin Glargine 20 units 08/07/24 21:00 Insulin Glargine (*Bkc) 100 Units/Ml SUB-Q 08/07/24 21:01 ONCE ONE Metoprolol Tartrate 12.5 mg 08/06/24 13:00 08/06/24 20:08 Metoprolol Tartrate 12.5 Mg Tablet PO 12.5 mg Q12HR SKYLAR Administration Morphine Sulfate 2 mg 08/06/24 07:35 Morphine Sulfate (*Crx) 2 Mg/Ml Inj IV PUSH Q2H PRN Pain Rated 7-10 Ondansetron HCl 4 mg 08/05/24 16:24 08/06/24 08:32 Ondansetron Inj 4 Mg/2 Ml Vial IV PUSH 4 mg Q6H PRN Administration Nausea And Vomiting Pantoprazole Sodium 40 mg 08/06/24 09:00 08/06/24 08:32 Pantoprazole Sodium Iv 40 Mg Vial IV PUSH 40 mg QAM SKYLAR Administration Perflutren Lipid Microsphere 0 ml 08/06/24 12:57 Perflutren Lipid Microspheres 1.5 Ml Vial Diluted To 10 Ml Total Volume IV PUSH 08/09/24 12:59 ONCE PRN adequate visualization Protocol Radiology Results: ITS Impressions Chest X-Ray 08/05/24 16:42 IMPRESSION: 1: NO ACUTE CARDIOPULMONARY DISEASE. Abdomen/Pelvis CT 08/05/24 16:50 IMPRESSION: 1. No acute intra-abdominal/pelvic process. Labs Labs: Laboratory Results - last 24 hr 08/05/24 08/06/24 08/06/24 14:55 08:23 09:04 WBC RBC Hgb Hct MCV MCH MCHC RDW Plt Count MPV Immature Gran % (Auto) Neut % (Auto) Lymph % (Auto) Mayes % (Auto) Eos % (Auto) Baso % (Auto) Lymph # (Auto) Mayes # (Auto) Eos # (Auto) Baso # (Auto) Abs Immat Gran (auto) Absolute Neuts (auto) Absolute Nucleated RBC Nucleated RBC % PT INR APTT Sodium 133 L Potassium 4.4 Chloride 106 Carbon Dioxide 9 L Anion Gap 18 H BUN 12 Creatinine 0.75 Estim Creat Clear Calc 106 Estimated GFR > 60 Glucose 170 H POC Capillary Glucose 179 H Lactic Acid 4.2 H* 0.6 L Calcium 9.2 Phosphorus Magnesium Total Bilirubin AST ALT Alkaline Phosphatase Troponin I 0.923 H* Total Protein Albumin Triglycerides Cholesterol LDL Cholesterol Direct HDL Direct 08/06/24 08/06/24 08/06/24 10:07 11:03 12:07 WBC RBC Hgb Hct MCV MCH MCHC RDW Plt Count MPV Immature Gran % (Auto) Neut % (Auto) Lymph % (Auto) Mayes % (Auto) Eos % (Auto) Baso % (Auto) Lymph # (Auto) Mayes # (Auto) Eos # (Auto) Baso # (Auto) Abs Immat Gran (auto) Absolute Neuts (auto) Absolute Nucleated RBC Nucleated RBC % PT INR APTT Sodium 132 L Potassium 4.3 Chloride 106 Carbon Dioxide 12 L Anion Gap 14 H BUN 11 Creatinine 0.68 L Estim Creat Clear Calc 116 Estimated GFR > 60 Glucose 191 H POC Capillary Glucose 187 H 201 H Lactic Acid Calcium 8.9 Phosphorus Magnesium Total Bilirubin AST ALT Alkaline Phosphatase Troponin I Total Protein Albumin Triglycerides Cholesterol LDL Cholesterol Direct HDL Direct 08/06/24 08/06/24 08/06/24 12:09 13:10 14:12 WBC RBC Hgb Hct MCV MCH MCHC RDW Plt Count MPV Immature Gran % (Auto) Neut % (Auto) Lymph % (Auto) Mayes % (Auto) Eos % (Auto) Baso % (Auto) Lymph # (Auto) Mayes # (Auto) Eos # (Auto) Baso # (Auto) Abs Immat Gran (auto) Absolute Neuts (auto) Absolute Nucleated RBC Nucleated RBC % PT INR APTT Sodium Potassium Chloride Carbon Dioxide Anion Gap BUN Creatinine Estim Creat Clear Calc Estimated GFR Glucose POC Capillary Glucose 218 H 189 H 232 H Lactic Acid Calcium Phosphorus Magnesium Total Bilirubin AST ALT Alkaline Phosphatase Troponin I Total Protein Albumin Triglycerides Cholesterol LDL Cholesterol Direct HDL Direct 08/06/24 08/06/24 08/06/24 14:59 14:59 15:16 WBC 14.9 H RBC 4.75 Hgb 13.4 L Hct 41.0 L MCV 86.3 MCH 28.2 MCHC 32.7 RDW 12.9 Plt Count 171 MPV 12.6 H Immature Gran % (Auto) 0.5 Neut % (Auto) 87.6 H Lymph % (Auto) 5.7 L Mayes % (Auto) 6.1 Eos % (Auto) 0.0 Baso % (Auto) 0.1 L Lymph # (Auto) 0.85 L Mayes # (Auto) 0.9 H Eos # (Auto) 0.0 Baso # (Auto) 0.0 Abs Immat Gran (auto) 0.08 H Absolute Neuts (auto) 13.0 H Absolute Nucleated RBC 0.000 Nucleated RBC % 0.0 PT 12.2 INR 0.9 APTT 28.2 Sodium Potassium Chloride Carbon Dioxide Anion Gap BUN Creatinine Estim Creat Clear Calc Estimated GFR Glucose POC Capillary Glucose 204 H Lactic Acid Calcium Phosphorus Magnesium Total Bilirubin AST ALT Alkaline Phosphatase Troponin I Cancelled 0.751 H* Total Protein Albumin Triglycerides 110 Cholesterol 416 H LDL Cholesterol Direct 252 HDL Direct 42 08/06/24 08/06/24 08/06/24 16:05 16:06 17:03 WBC RBC Hgb Hct MCV MCH MCHC RDW Plt Count MPV Immature Gran % (Auto) Neut % (Auto) Lymph % (Auto) Mayes % (Auto) Eos % (Auto) Baso % (Auto) Lymph # (Auto) Mayes # (Auto) Eos # (Auto) Baso # (Auto) Abs Immat Gran (auto) Absolute Neuts (auto) Absolute Nucleated RBC Nucleated RBC % PT INR APTT Sodium 132 L Potassium 4.3 Chloride 105 Carbon Dioxide 14 L Anion Gap 13 H BUN 9 Creatinine 0.69 L Estim Creat Clear Calc 115 Estimated GFR > 60 Glucose 189 H POC Capillary Glucose 207 H 205 H Lactic Acid Calcium 9.0 Phosphorus Magnesium Total Bilirubin 0.8 AST 37 ALT 27 Alkaline Phosphatase 78 Troponin I Total Protein 7.1 Albumin 4.2 Triglycerides Cholesterol LDL Cholesterol Direct HDL Direct 08/06/24 08/06/24 08/06/24 18:06 19:00 19:43 WBC RBC Hgb Hct MCV MCH MCHC RDW Plt Count MPV Immature Gran % (Auto) Neut % (Auto) Lymph % (Auto) Mayes % (Auto) Eos % (Auto) Baso % (Auto) Lymph # (Auto) Mayes # (Auto) Eos # (Auto) Baso # (Auto) Abs Immat Gran (auto) Absolute Neuts (auto) Absolute Nucleated RBC Nucleated RBC % PT INR APTT Sodium 131 L Potassium 4.4 Chloride 105 Carbon Dioxide 16 L Anion Gap 10 BUN 8 L Creatinine 0.63 L Estim Creat Clear Calc 125 Estimated GFR > 60 Glucose 203 H POC Capillary Glucose 195 H 212 H Lactic Acid Calcium 8.9 Phosphorus Magnesium Total Bilirubin AST ALT Alkaline Phosphatase Troponin I 0.648 H* Total Protein Albumin Triglycerides Cholesterol LDL Cholesterol Direct HDL Direct 08/06/24 08/06/24 08/06/24 20:03 21:18 22:01 WBC RBC Hgb Hct MCV MCH MCHC RDW Plt Count MPV Immature Gran % (Auto) Neut % (Auto) Lymph % (Auto) Mayes % (Auto) Eos % (Auto) Baso % (Auto) Lymph # (Auto) Mayes # (Auto) Eos # (Auto) Baso # (Auto) Abs Immat Gran (auto) Absolute Neuts (auto) Absolute Nucleated RBC Nucleated RBC % PT INR APTT 76.2 H Sodium Potassium Chloride Carbon Dioxide Anion Gap BUN Creatinine Estim Creat Clear Calc Estimated GFR Glucose POC Capillary Glucose 196 H 227 H Lactic Acid Calcium Phosphorus Magnesium Total Bilirubin AST ALT Alkaline Phosphatase Troponin I Total Protein Albumin Triglycerides Cholesterol LDL Cholesterol Direct HDL Direct 08/06/24 08/06/24 08/07/24 22:05 23:04 00:04 WBC RBC Hgb Hct MCV MCH MCHC RDW Plt Count MPV Immature Gran % (Auto) Neut % (Auto) Lymph % (Auto) Mayes % (Auto) Eos % (Auto) Baso % (Auto) Lymph # (Auto) Mayes # (Auto) Eos # (Auto) Baso # (Auto) Abs Immat Gran (auto) Absolute Neuts (auto) Absolute Nucleated RBC Nucleated RBC % PT INR APTT Sodium Potassium Chloride Carbon Dioxide Anion Gap BUN Creatinine Estim Creat Clear Calc Estimated GFR Glucose POC Capillary Glucose 219 H 220 H 218 H Lactic Acid Calcium Phosphorus Magnesium Total Bilirubin AST ALT Alkaline Phosphatase Troponin I Total Protein Albumin Triglycerides Cholesterol LDL Cholesterol Direct HDL Direct 08/07/24 08/07/24 08/07/24 00:20 01:08 02:07 WBC RBC Hgb Hct MCV MCH MCHC RDW Plt Count MPV Immature Gran % (Auto) Neut % (Auto) Lymph % (Auto) Mayes % (Auto) Eos % (Auto) Baso % (Auto) Lymph # (Auto) Mayes # (Auto) Eos # (Auto) Baso # (Auto) Abs Immat Gran (auto) Absolute Neuts (auto) Absolute Nucleated RBC Nucleated RBC % PT INR APTT Sodium 129 L Potassium 4.4 Chloride 105 Carbon Dioxide 15 L Anion Gap 9 BUN 8 L Creatinine 0.64 L Estim Creat Clear Calc 123 Estimated GFR > 60 Glucose 225 H POC Capillary Glucose 247 H 256 H Lactic Acid Calcium 9.0 Phosphorus Magnesium Total Bilirubin AST ALT Alkaline Phosphatase Troponin I Total Protein Albumin Triglycerides Cholesterol LDL Cholesterol Direct HDL Direct 08/07/24 08/07/24 08/07/24 03:09 04:07 04:09 WBC 10.3 H RBC 4.69 Hgb 13.1 L Hct 39.0 L MCV 83.2 MCH 27.9 MCHC 33.6 RDW 12.8 Plt Count 162 MPV 12.7 H Immature Gran % (Auto) 0.3 Neut % (Auto) 85.4 H Lymph % (Auto) 9.0 L Mayes % (Auto) 5.0 Eos % (Auto) 0.1 Baso % (Auto) 0.2 Lymph # (Auto) 0.93 Mayes # (Auto) 0.5 Eos # (Auto) 0.0 Baso # (Auto) 0.0 Abs Immat Gran (auto) 0.03 Absolute Neuts (auto) 8.8 H Absolute Nucleated RBC 0.000 Nucleated RBC % 0.0 PT INR APTT 58.6 H Sodium 131 L Potassium 4.0 Chloride 106 Carbon Dioxide 18 L Anion Gap 7 BUN 7 L Creatinine 0.60 L Estim Creat Clear Calc 129 Estimated GFR > 60 Glucose 213 H POC Capillary Glucose 231 H 230 H Lactic Acid Calcium 8.9 Phosphorus 1.4 L Magnesium 1.9 Total Bilirubin AST ALT Alkaline Phosphatase Troponin I Total Protein Albumin Triglycerides Cholesterol LDL Cholesterol Direct HDL Direct 08/07/24 08/07/24 08/07/24 05:04 06:10 07:01 WBC RBC Hgb Hct MCV MCH MCHC RDW Plt Count MPV Immature Gran % (Auto) Neut % (Auto) Lymph % (Auto) Mayes % (Auto) Eos % (Auto) Baso % (Auto) Lymph # (Auto) Mayes # (Auto) Eos # (Auto) Baso # (Auto) Abs Immat Gran (auto) Absolute Neuts (auto) Absolute Nucleated RBC Nucleated RBC % PT INR APTT Sodium Potassium Chloride Carbon Dioxide Anion Gap BUN Creatinine Estim Creat Clear Calc Estimated GFR Glucose POC Capillary Glucose 217 H 220 H 229 H Lactic Acid Calcium Phosphorus Magnesium Total Bilirubin AST ALT Alkaline Phosphatase Troponin I Total Protein Albumin Triglycerides Cholesterol LDL Cholesterol Direct HDL Direct 08/07/24 08:17 WBC RBC Hgb Hct MCV MCH MCHC RDW Plt Count MPV Immature Gran % (Auto) Neut % (Auto) Lymph % (Auto) Mayes % (Auto) Eos % (Auto) Baso % (Auto) Lymph # (Auto) Mayes # (Auto) Eos # (Auto) Baso # (Auto) Abs Immat Gran (auto) Absolute Neuts (auto) Absolute Nucleated RBC Nucleated RBC % PT INR APTT Sodium Potassium Chloride Carbon Dioxide Anion Gap BUN Creatinine Estim Creat Clear Calc Estimated GFR Glucose POC Capillary Glucose 239 H Lactic Acid Calcium Phosphorus Magnesium Total Bilirubin AST ALT Alkaline Phosphatase Troponin I Total Protein Albumin Triglycerides Cholesterol LDL Cholesterol Direct HDL Direct Quality VTE Prophylaxis VTE prophylaxis: mechanical ordered
[2024-08-07] MEDS: PANTOPRAZOLE SODIUM IV 40 MG VIAL IV PUSH (08:32)
[2024-08-07] MEDS: SODIUM PHOSPHATE 20 MM in DEXTROSE 5% IN WATER 250 ML 50 MM IVPB (08:32)
[2024-08-07] MEDS: ASPIRIN 81 MG ENTERIC TABLET PO (08:33)
[2024-08-07] MEDS: METOPROLOL TARTRATE 12.5 MG TABLET PO (08:33)
[2024-08-07] MEDS: ATORVASTATIN 40 MG TABLET 80 MG PO (08:34)
[2024-08-07] MEDS: INSULIN GLARGINE (*BKC) 100 UNITS/ML 20 UNITS SUB-Q (08:36)
--- NOTE | 2024-08-07 09:42 | PM.PNCARD ---
Progress Note: A&P Assessment and Plan (1) NSTEMI (non-ST elevated myocardial infarction): Code(s): I21.4 - Non-ST elevation (NSTEMI) myocardial infarction Status: Acute (2) Ischemic cardiomyopathy: Code(s): I25.5 - Ischemic cardiomyopathy Status: Acute Plan 44-year-old man with insulin-dependent diabetes and coronary artery disease status post PCI to proximal LAD presented with whole body aches and nausea/vomiting found to have elevated troponin along with exertional dyspnea and is new for the past few days prior to presentation Non ST-elevation HI -will define his coronary anatomy with possible PCI -we discussed the risk, benefits, and alternatives to cardiac catheterization with possible PCI -all questions were answered and patient agreed to proceed forward Ischemic cardiomyopathy -will start him on losartan 25 mg p.o. daily and metoprolol succinate 25 mg p.o. daily -continue Jardiance at his diabetic dose Coronary artery disease status post PCI -continue aspirin 81 mg p.o. daily and atorvastatin 80 mg every evening Subjective Date/time seen: 08/07/24 09:42 Interval history: Patient denies any chest pain or shortness of breath. He does have chronic lower extremity numbness. He feels that the symptoms that initially brought him in is improving. The symptoms include 0 body ache, nausea, and vomiting Review of Systems Cardiovascular: Cardiovascular: Reports as per HPI Respiratory: Respiratory: Reports as per HPI Exam Const: General: comfortable HENMT: Mouth: Yes moist mucous membranes Eyes: EOM: EOMs intact bilaterally Neck: Neck: no JVD Resp: Effort & Inspection: normal respiratory effort Auscultation: clear to auscultation bilaterally Cardio: Rate: regular rate Rhythm: regular rhythm Neuro: Speech: normal speech Extrem: General: no pedal edema Objective Data Vital Signs Vital Signs: Vital Signs - 24 hr 08/06/24 10:00 08/06/24 10:00 08/06/24 12:00 Temperature 36.7 C 36.2 C L Pulse Rate 80 79 80 Respiratory Rate 11 L 15 Blood Pressure 160/97 H 153/71 H Pulse Oximetry 99 100 Oxygen Delivery Fraction of Inspired Oxygen 08/06/24 12:00 08/06/24 13:37 08/06/24 14:00 Temperature 36.7 C Pulse Rate 75 76 71 Respiratory Rate 13 Blood Pressure 149/76 H Pulse Oximetry 99 Oxygen Delivery Fraction of Inspired Oxygen 06/04/25 14:00 08/06/24 16:00 08/06/24 16:00 Temperature 36.3 C L Pulse Rate 76 70 70 Respiratory Rate 12 Blood Pressure 125/87 Pulse Oximetry 100 Oxygen Delivery Fraction of Inspired Oxygen 08/06/24 18:00 08/06/24 18:00 08/06/24 20:00 Temperature 36.7 C Pulse Rate 68 66 Respiratory Rate 11 L Blood Pressure 135/83 Pulse Oximetry 99 100 Oxygen Delivery Room Air Fraction of Inspired Oxygen 08/06/24 20:00 08/06/24 20:00 08/06/24 20:08 Temperature 36.8 C Pulse Rate 66 69 68 Respiratory Rate 12 Blood Pressure 145/88 H Pulse Oximetry 100 Oxygen Delivery Fraction of Inspired Oxygen 08/06/24 21:00 08/06/24 22:00 08/06/24 22:00 Temperature Pulse Rate 70 75 75 Respiratory Rate 24 H 16 Blood Pressure 125/106 H Pulse Oximetry 99 99 Oxygen Delivery Room Air Fraction of Inspired Oxygen 21 08/07/24 00:00 08/07/24 00:00 08/07/24 00:00 Temperature 37.1 C Pulse Rate 74 78 Respiratory Rate 16 Blood Pressure 135/85 Pulse Oximetry 100 100 Oxygen Delivery Room Air Fraction of Inspired Oxygen 08/07/24 02:00 08/07/24 02:00 08/07/24 04:00 Temperature 36.9 C Pulse Rate 87 87 87 Respiratory Rate 18 12 Blood Pressure 159/90 H 111/79 Pulse Oximetry 99 99 Oxygen Delivery Fraction of Inspired Oxygen 08/07/24 04:00 08/07/24 04:00 08/07/24 06:00 Temperature Pulse Rate 87 79 Respiratory Rate 16 Blood Pressure 143/86 H Pulse Oximetry 99 99 Oxygen Delivery Room Air Fraction of Inspired Oxygen 08/07/24 06:00 08/07/24 07:36 08/07/24 08:33 Temperature 37.0 C Pulse Rate 79 76 70 Respiratory Rate 12 Blood Pressure 143/66 H Pulse Oximetry 99 Oxygen Delivery Fraction of Inspired Oxygen Intake/Output Intake/Output: Intake & Output 08/04/24 08/05/24 08/06/24 08/07/24 23:59 23:59 23:59 23:59 Intake Total 2588.6 4268.2 2077.7 Output Total 600 4000 2175 Balance 1988.6 268.2 -97.3 Meds/Results Medications: Active Medications Generic Name Dose Route Start Last Admin Trade Name Freq PRN Reason Stop Dose Admin Acetaminophen 650 mg 08/05/24 16:24 08/06/24 01:18 Acetaminophen 325 Mg Tablet PO 650 mg Q4H PRN Administration Mild Pain (1-3) or Fever Hydrocodone Bitart/Acetaminophen 1 tab 08/05/24 16:24 08/06/24 13:37 Hydrocodone/Acetaminophen (*Crx) 5-325 Mg Tablet PO 1 tab Q6H PRN Administration Pain Rated 4-6 Aspirin 81 mg 08/07/24 09:00 08/07/24 08:33 Aspirin 81 Mg Enteric Tablet PO 81 mg QAM SKYLAR Administration Atorvastatin Calcium 80 mg 08/06/24 13:35 08/07/24 08:34 Atorvastatin 40 Mg Tablet PO 80 mg DAILY SKYLAR Administration Calcium Carbonate 200 mg 08/06/24 07:35 08/06/24 20:14 Calcium Carbonate (Tums) 500 Mg (200 Mg Elemental) PO 200 mg Q6H PRN Administration Indigestion Dextrose 12.5 gm 08/05/24 15:57 Dextrose 50% 25 Gm/50 Ml Syringe IV PUSH PRN PRN Hypoglycemia Protocol Glucagon 1 mg 08/05/24 15:57 Glucagon For Inj 1 Mg Vial IM PRN PRN Hypoglycemia Protocol Glucose 15 gm 08/05/24 15:57 Glucose Oral Gel 15 Gm Of Glucse In 37.5 Gm Tube PO PRN PRN Hypoglycemia Protocol Heparin Sodium (Porcine) 4,000 units 08/06/24 14:47 Heparin Sodium 5,000 Units/Ml Vial IV PUSH PRN PRN aPTT less than 55 seconds Heparin Sodium (Porcine) 2,500 units 08/06/24 14:47 08/07/24 05:08 Heparin Sodium 5,000 Units/Ml Vial IV PUSH 2,500 units PRN PRN Administration aPTT 55 - 70 seconds Dextrose 1,000 mls @ 100 mls/hr 08/05/24 15:57 Dextrose 5% 1,000 Ml IVPB PRN PRN Hypoglycemia Protocol Heparin Sodium/Dextrose 25,000 units in 250 mls @ 9 mls/hr 08/06/24 14:50 08/07/24 05:00 Heparin Sodium/D5w 100 Units/Ml IV CONT 900 units/hr .Q24H SKYLAR 9 mls/hr Titration Protocol 900 UNITS/HR Sodium Phosphate 20 mm/ 256.6667 mls @ 50 mls/hr 08/07/24 07:24 08/07/24 08:32 Dextrose IVPB 08/07/24 12:31 50 mls/hr ONCE ONE Administration Insulin Aspart 3 - 6 units 08/07/24 09:00 08/07/24 08:40 Insulin Aspart (*Bkc) 100 Units/Ml SUB-Q Not Given Q4HR [facility] Protocol Insulin Glargine 40 units 08/08/24 21:00 Insulin Glargine (*Bkc) 100 Units/Ml SUB-Q HS SKYLAR Insulin Glargine 20 units 08/07/24 21:00 Insulin Glargine (*Bkc) 100 Units/Ml SUB-Q 08/07/24 21:01 ONCE ONE Metoprolol Tartrate 12.5 mg 08/06/24 13:00 08/07/24 08:33 Metoprolol Tartrate 12.5 Mg Tablet PO 12.5 mg Q12HR SKYLAR Administration Morphine Sulfate 2 mg 08/06/24 07:35 Morphine Sulfate (*Crx) 2 Mg/Ml Inj IV PUSH Q2H PRN Pain Rated 7-10 Ondansetron HCl 4 mg 08/05/24 16:24 08/06/24 08:32 Ondansetron Inj 4 Mg/2 Ml Vial IV PUSH 4 mg Q6H PRN Administration Nausea And Vomiting Pantoprazole Sodium 40 mg 08/06/24 09:00 08/07/24 08:32 Pantoprazole Sodium Iv 40 Mg Vial IV PUSH 40 mg QAM SKYLAR Administration Perflutren Lipid Microsphere 0 ml 08/06/24 12:57 Perflutren Lipid Microspheres 1.5 Ml Vial Diluted To 10 Ml Total Volume IV PUSH 08/09/24 12:59 ONCE PRN adequate visualization Protocol Radiology Results: ITS Impressions Chest X-Ray 08/05/24 16:42 IMPRESSION: 1: NO ACUTE CARDIOPULMONARY DISEASE. Abdomen/Pelvis CT 08/05/24 16:50 IMPRESSION: 1. No acute intra-abdominal/pelvic process. Labs Labs: Laboratory Results - last 24 hr 08/05/24 08/06/24 08/06/24 14:55 08:23 10:07 WBC RBC Hgb Hct MCV MCH MCHC RDW Plt Count MPV Immature Gran % (Auto) Neut % (Auto) Lymph % (Auto) [place] % (Auto) Eos % (Auto) Baso % (Auto) Lymph # (Auto) [place] # (Auto) Eos # (Auto) Baso # (Auto) Abs Immat Gran (auto) Absolute Neuts (auto) Absolute Nucleated RBC Nucleated RBC % PT INR APTT Sodium Potassium Chloride Carbon Dioxide Anion Gap BUN Creatinine Estim Creat Clear Calc Estimated GFR Glucose POC Capillary Glucose 187 H Lactic Acid 4.2 H* Calcium Phosphorus Magnesium Total Bilirubin AST ALT Alkaline Phosphatase Troponin I 0.923 H* Total Protein Albumin Triglycerides Cholesterol LDL Cholesterol Direct HDL Direct 08/06/24 08/06/24 08/06/24 11:03 12:07 12:09 WBC RBC Hgb Hct MCV MCH MCHC RDW Plt Count MPV Immature Gran % (Auto) Neut % (Auto) Lymph % (Auto) [place] % (Auto) Eos % (Auto) Baso % (Auto) Lymph # (Auto) [place] # (Auto) Eos # (Auto) Baso # (Auto) Abs Immat Gran (auto) Absolute Neuts (auto) Absolute Nucleated RBC Nucleated RBC % PT INR APTT Sodium 132 L Potassium 4.3 Chloride 106 Carbon Dioxide 12 L Anion Gap 14 H BUN 11 Creatinine 0.68 L Estim Creat Clear Calc 116 Estimated GFR > 60 Glucose 191 H POC Capillary Glucose 201 H 218 H Lactic Acid Calcium 8.9 Phosphorus Magnesium Total Bilirubin AST ALT Alkaline Phosphatase Troponin I Total Protein Albumin Triglycerides Cholesterol LDL Cholesterol Direct HDL Direct 08/06/24 08/06/24 08/06/24 13:10 14:12 14:59 WBC 14.9 H RBC 4.75 Hgb 13.4 L Hct 41.0 L MCV 86.3 MCH 28.2 MCHC 32.7 RDW 12.9 Plt Count 171 MPV 12.6 H Immature Gran % (Auto) 0.5 Neut % (Auto) 87.6 H Lymph % (Auto) 5.7 L [place] % (Auto) 6.1 Eos % (Auto) 0.0 Baso % (Auto) 0.1 L Lymph # (Auto) 0.85 L [place] # (Auto) 0.9 H Eos # (Auto) 0.0 Baso # (Auto) 0.0 Abs Immat Gran (auto) 0.08 H Absolute Neuts (auto) 13.0 H Absolute Nucleated RBC 0.000 Nucleated RBC % 0.0 PT 12.2 INR 0.9 APTT 28.2 Sodium Potassium Chloride Carbon Dioxide Anion Gap BUN Creatinine Estim Creat Clear Calc Estimated GFR Glucose POC Capillary Glucose 189 H 232 H Lactic Acid Calcium Phosphorus Magnesium Total Bilirubin AST ALT Alkaline Phosphatase Troponin I Cancelled Total Protein Albumin Triglycerides Cholesterol LDL Cholesterol Direct HDL Direct 08/06/24 08/06/24 08/06/24 14:59 15:16 16:05 WBC RBC Hgb Hct MCV MCH MCHC RDW Plt Count MPV Immature Gran % (Auto) Neut % (Auto) Lymph % (Auto) [place] % (Auto) Eos % (Auto) Baso % (Auto) Lymph # (Auto) [place] # (Auto) Eos # (Auto) Baso # (Auto) Abs Immat Gran (auto) Absolute Neuts (auto) Absolute Nucleated RBC Nucleated RBC % PT INR APTT Sodium 132 L Potassium 4.3 Chloride 105 Carbon Dioxide 14 L Anion Gap 13 H BUN 9 Creatinine 0.69 L Estim Creat Clear Calc 115 Estimated GFR > 60 Glucose 189 H POC Capillary Glucose 204 H Lactic Acid Calcium 9.0 Phosphorus Magnesium Total Bilirubin 0.8 AST 37 ALT 27 Alkaline Phosphatase 78 Troponin I 0.751 H* Total Protein 7.1 Albumin 4.2 Triglycerides 110 Cholesterol 416 H LDL Cholesterol Direct 252 HDL Direct 42 08/06/24 08/06/24 08/06/24 16:06 17:03 18:06 WBC RBC Hgb Hct MCV MCH MCHC RDW Plt Count MPV Immature Gran % (Auto) Neut % (Auto) Lymph % (Auto) [place] % (Auto) Eos % (Auto) Baso % (Auto) Lymph # (Auto) [place] # (Auto) Eos # (Auto) Baso # (Auto) Abs Immat Gran (auto) Absolute Neuts (auto) Absolute Nucleated RBC Nucleated RBC % PT INR APTT Sodium Potassium Chloride Carbon Dioxide Anion Gap BUN Creatinine Estim Creat Clear Calc Estimated GFR Glucose POC Capillary Glucose 207 H 205 H 195 H Lactic Acid Calcium Phosphorus Magnesium Total Bilirubin AST ALT Alkaline Phosphatase Troponin I Total Protein Albumin Triglycerides Cholesterol LDL Cholesterol Direct HDL Direct 08/06/24 08/06/24 08/06/24 19:00 19:43 20:03 WBC RBC Hgb Hct MCV MCH MCHC RDW Plt Count MPV Immature Gran % (Auto) Neut % (Auto) Lymph % (Auto) [place] % (Auto) Eos % (Auto) Baso % (Auto) Lymph # (Auto) [place] # (Auto) Eos # (Auto) Baso # (Auto) Abs Immat Gran (auto) Absolute Neuts (auto) Absolute Nucleated RBC Nucleated RBC % PT INR APTT Sodium 131 L Potassium 4.4 Chloride 105 Carbon Dioxide 16 L Anion Gap 10 BUN 8 L Creatinine 0.63 L Estim Creat Clear Calc 125 Estimated GFR > 60 Glucose 203 H POC Capillary Glucose 212 H 196 H Lactic Acid Calcium 8.9 Phosphorus Magnesium Total Bilirubin AST ALT Alkaline Phosphatase Troponin I 0.648 H* Total Protein Albumin Triglycerides Cholesterol LDL Cholesterol Direct HDL Direct 08/06/24 08/06/24 08/06/24 21:18 22:01 22:05 WBC RBC Hgb Hct MCV MCH MCHC RDW Plt Count MPV Immature Gran % (Auto) Neut % (Auto) Lymph % (Auto) [place] % (Auto) Eos % (Auto) Baso % (Auto) Lymph # (Auto) [place] # (Auto) Eos # (Auto) Baso # (Auto) Abs Immat Gran (auto) Absolute Neuts (auto) Absolute Nucleated RBC Nucleated RBC % PT INR APTT 76.2 H Sodium Potassium Chloride Carbon Dioxide Anion Gap BUN Creatinine Estim Creat Clear Calc Estimated GFR Glucose POC Capillary Glucose 227 H 219 H Lactic Acid Calcium Phosphorus Magnesium Total Bilirubin AST ALT Alkaline Phosphatase Troponin I Total Protein Albumin Triglycerides Cholesterol LDL Cholesterol Direct HDL Direct 08/06/24 08/07/24 08/07/24 23:04 00:04 00:20 WBC RBC Hgb Hct MCV MCH MCHC RDW Plt Count MPV Immature Gran % (Auto) Neut % (Auto) Lymph % (Auto) [place] % (Auto) Eos % (Auto) Baso % (Auto) Lymph # (Auto) [place] # (Auto) Eos # (Auto) Baso # (Auto) Abs Immat Gran (auto) Absolute Neuts (auto) Absolute Nucleated RBC Nucleated RBC % PT INR APTT Sodium 129 L Potassium 4.4 Chloride 105 Carbon Dioxide 15 L Anion Gap 9 BUN 8 L Creatinine 0.64 L Estim Creat Clear Calc 123 Estimated GFR > 60 Glucose 225 H POC Capillary Glucose 220 H 218 H Lactic Acid Calcium 9.0 Phosphorus Magnesium Total Bilirubin AST ALT Alkaline Phosphatase Troponin I Total Protein Albumin Triglycerides Cholesterol LDL Cholesterol Direct HDL Direct 08/07/24 08/07/24 08/07/24 01:08 02:07 03:09 WBC RBC Hgb Hct MCV MCH MCHC RDW Plt Count MPV Immature Gran % (Auto) Neut % (Auto) Lymph % (Auto) [place] % (Auto) Eos % (Auto) Baso % (Auto) Lymph # (Auto) [place] # (Auto) Eos # (Auto) Baso # (Auto) Abs Immat Gran (auto) Absolute Neuts (auto) Absolute Nucleated RBC Nucleated RBC % PT INR APTT Sodium Potassium Chloride Carbon Dioxide Anion Gap BUN Creatinine Estim Creat Clear Calc Estimated GFR Glucose POC Capillary Glucose 247 H 256 H 231 H Lactic Acid Calcium Phosphorus Magnesium Total Bilirubin AST ALT Alkaline Phosphatase Troponin I Total Protein Albumin Triglycerides Cholesterol LDL Cholesterol Direct HDL Direct 08/07/24 08/07/24 08/07/24 04:07 04:09 05:04 WBC 10.3 H RBC 4.69 Hgb 13.1 L Hct 39.0 L MCV 83.2 MCH 27.9 MCHC 33.6 RDW 12.8 Plt Count 162 MPV 12.7 H Immature Gran % (Auto) 0.3 Neut % (Auto) 85.4 H Lymph % (Auto) 9.0 L [place] % (Auto) 5.0 Eos % (Auto) 0.1 Baso % (Auto) 0.2 Lymph # (Auto) 0.93 [place] # (Auto) 0.5 Eos # (Auto) 0.0 Baso # (Auto) 0.0 Abs Immat Gran (auto) 0.03 Absolute Neuts (auto) 8.8 H Absolute Nucleated RBC 0.000 Nucleated RBC % 0.0 PT INR APTT 58.6 H Sodium 131 L Potassium 4.0 Chloride 106 Carbon Dioxide 18 L Anion Gap 7 BUN 7 L Creatinine 0.60 L Estim Creat Clear Calc 129 Estimated GFR > 60 Glucose 213 H POC Capillary Glucose 230 H 217 H Lactic Acid Calcium 8.9 Phosphorus 1.4 L Magnesium 1.9 Total Bilirubin AST ALT Alkaline Phosphatase Troponin I Total Protein Albumin Triglycerides Cholesterol LDL Cholesterol Direct HDL Direct 08/07/24 08/07/24 08/07/24 06:10 07:01 08:17 WBC RBC Hgb Hct MCV MCH MCHC RDW Plt Count MPV Immature Gran % (Auto) Neut % (Auto) Lymph % (Auto) [place] % (Auto) Eos % (Auto) Baso % (Auto) Lymph # (Auto) [place] # (Auto) Eos # (Auto) Baso # (Auto) Abs Immat Gran (auto) Absolute Neuts (auto) Absolute Nucleated RBC Nucleated RBC % PT INR APTT Sodium Potassium Chloride Carbon Dioxide Anion Gap BUN Creatinine Estim Creat Clear Calc Estimated GFR Glucose POC Capillary Glucose 220 H 229 H 239 H Lactic Acid Calcium Phosphorus Magnesium Total Bilirubin AST ALT Alkaline Phosphatase Troponin I Total Protein Albumin Triglycerides Cholesterol LDL Cholesterol Direct HDL Direct
--- NOTE | 2024-08-07 09:47 | P.SEDATION_ITS ---
Moderate Sedation Note-Pt Data Patient Data Allergies Allergy/AdvReac Type Severity Reaction Status Date / Time No Known Allergies Allergy Verified 08/05/24 19:44 Home Medications ?Medication ?Instructions ?Recorded ?Confirmed ?Type empagliflozin 25 mg tablet 25 mg PO DAILY 08/05/24 08/05/24 History (Jardiance) insulin glargine 100 unit/mL (3 40 unit subcut QPM 08/05/24 08/05/24 History mL) subcutaneous pen (Basaglar KwikPen U-100 Insulin) metformin 500 mg tablet,extended 500 mg PO QPM 08/05/24 08/05/24 History release 24 hr Current Medications: Active Medications Acetaminophen (Acetaminophen 325 Mg Tablet) 650 mg PO Q4H PRN PRN Reason: Mild Pain (1-3) or Fever Last Admin: 08/06/24 01:18 Dose: 650 mg Hydrocodone Bitart/Acetaminophen (Hydrocodone/Acetaminophen (*Crx) 5-325 Mg Tablet) 1 tab PO Q6H PRN PRN Reason: Pain Rated 4-6 Last Admin: 08/06/24 13:37 Dose: 1 tab Aspirin (Aspirin 81 Mg Enteric Tablet) 81 mg PO QAM [facility] Last Admin: 08/07/24 08:33 Dose: 81 mg Atorvastatin Calcium (Atorvastatin 40 Mg Tablet) 80 mg PO DAILY [facility] Last Admin: 08/07/24 08:34 Dose: 80 mg Calcium Carbonate (Calcium Carbonate (Tums) 500 Mg (200 Mg Elemental)) 200 mg PO Q6H PRN PRN Reason: Indigestion Last Admin: 08/06/24 20:14 Dose: 200 mg Dextrose (Dextrose 50% 25 Gm/50 Ml Syringe) 12.5 gm IV PUSH PRN PRN; Protocol PRN Reason: Hypoglycemia Glucagon (Glucagon For Inj 1 Mg Vial) 1 mg IM PRN PRN; Protocol PRN Reason: Hypoglycemia Glucose (Glucose Oral Gel 15 Gm Of Glucse In 37.5 Gm Tube) 15 gm PO PRN PRN; Protocol PRN Reason: Hypoglycemia Heparin Sodium (Porcine) (Heparin Sodium 5,000 Units/Ml Vial) 4,000 units IV PUSH PRN PRN PRN Reason: aPTT less than 55 seconds Heparin Sodium (Porcine) (Heparin Sodium 5,000 Units/Ml Vial) 2,500 units IV PUSH PRN PRN PRN Reason: aPTT 55 - 70 seconds Last Admin: 08/07/24 05:08 Dose: 2,500 units Dextrose (Dextrose 5% 1,000 Ml) 1,000 mls @ 100 mls/hr IVPB PRN PRN; Protocol PRN Reason: Hypoglycemia Heparin Sodium/Dextrose (Heparin Sodium/D5w 100 Units/Ml) 25,000 units in 250 mls @ 9 mls/hr IV CONT .Q24H SKYLAR; Protocol Last Titration: 08/07/24 05:00 Dose: 900 units/hr, 9 mls/hr Sodium Phosphate 20 mm/ (Dextrose) 256.6667 mls @ 50 mls/hr IVPB ONCE ONE Stop: 08/07/24 12:31 Last Admin: 08/07/24 08:32 Dose: 50 mls/hr Insulin Aspart (Insulin Aspart (*Bkc) 100 Units/Ml) 3 - 6 units SUB-Q Q4HR SKYLAR; Protocol Last Admin: 08/07/24 08:40 Dose: Not Given Insulin Glargine (Insulin Glargine (*Bkc) 100 Units/Ml) 40 units SUB-Q HS [facility] Insulin Glargine (Insulin Glargine (*Bkc) 100 Units/Ml) 20 units SUB-Q ONCE ONE Stop: 08/07/24 21:01 Metoprolol Tartrate (Metoprolol Tartrate 12.5 Mg Tablet) 12.5 mg PO Q12HR SKYLAR Last Admin: 08/07/24 08:33 Dose: 12.5 mg Morphine Sulfate (Morphine Sulfate (*Crx) 2 Mg/Ml Inj) 2 mg IV PUSH Q2H PRN PRN Reason: Pain Rated 7-10 Ondansetron HCl (Ondansetron Inj 4 Mg/2 Ml Vial) 4 mg IV PUSH Q6H PRN PRN Reason: Nausea And Vomiting Last Admin: 08/06/24 08:32 Dose: 4 mg Pantoprazole Sodium (Pantoprazole Sodium Iv 40 Mg Vial) 40 mg IV PUSH QAM [facility]AR Last Admin: 08/07/24 08:32 Dose: 40 mg Perflutren Lipid Microsphere (Perflutren Lipid Microspheres 1.5 Ml Vial Diluted To 10 Ml Total Volume) 0 ml IV PUSH ONCE PRN; Protocol PRN Reason: adequate visualization Stop: 08/09/24 12:59 Sedation/Anesthesia: No previous sedation/anesthesia problems (including family history). [facility] Past Medical History Medical History DKA (diabetic ketoacidosis) DM2 (diabetes mellitus, type 2) Social History Social History Smoking status: Never smoker Alcohol intake: former Drinks per week: 3 Substance use: former Substance use type: marijuana Last use: 08/04/2024 Do You Feel Safe in your Home?: Yes Lack of Transportation: No Lack of Food: Never True Current Housing: Decline to Answer Concerned About Future Housing: No Difficulty Paying Gas/Electric Bills: No Difficulty Paying for Meds: No Currently Unemployed: No Education: Decline to Answer Difficulty w/ Childcare or Family Care: No Spiritual care concerns: No Mod Sed Physical Exam Physical Exam Pre Procedural Exam: Normal: Throat, Airway, Lungs, Heart Rate and Heart Rhythm Hours since solid foods: 12 Hours since liquid intake: 12 Mallampati Classification: class II Internal Medicine - PN: Obj Da Vital Signs Vital Signs: Vital Signs - 24 hr 08/06/24 10:00 08/06/24 10:00 08/06/24 12:00 Temperature 36.7 C 36.2 C L Pulse Rate 80 79 80 Respiratory Rate 11 L 15 Blood Pressure 160/97 H 153/71 H Pulse Oximetry 99 100 Oxygen Delivery Fraction of Inspired Oxygen 08/06/24 12:00 08/06/24 13:37 08/06/24 14:00 Temperature 36.7 C Pulse Rate 75 76 71 Respiratory Rate 13 Blood Pressure 149/76 H Pulse Oximetry 99 Oxygen Delivery Fraction of Inspired Oxygen 08/06/24 14:00 08/06/24 16:00 08/06/24 16:00 Temperature 36.3 C L Pulse Rate 76 70 70 Respiratory Rate 12 Blood Pressure 125/87 Pulse Oximetry 100 Oxygen Delivery Fraction of Inspired Oxygen 08/06/24 18:00 08/06/24 18:00 08/06/24 20:00 Temperature 36.7 C Pulse Rate 68 66 Respiratory Rate 11 L Blood Pressure 135/83 Pulse Oximetry 99 100 Oxygen Delivery Room Air Fraction of Inspired Oxygen 08/06/24 20:00 08/06/24 20:00 08/06/24 20:08 Temperature 36.8 C Pulse Rate 66 69 68 Respiratory Rate 12 Blood Pressure 145/88 H Pulse Oximetry 100 Oxygen Delivery Fraction of Inspired Oxygen 08/06/24 21:00 08/06/24 22:00 08/06/24 22:00 Temperature Pulse Rate 70 75 75 Respiratory Rate 24 H 16 Blood Pressure 125/106 H Pulse Oximetry 99 99 Oxygen Delivery Room Air Fraction of Inspired Oxygen 21 08/07/24 00:00 08/07/24 00:00 08/07/24 00:00 Temperature 37.1 C Pulse Rate 74 78 Respiratory Rate 16 Blood Pressure 135/85 Pulse Oximetry 100 100 Oxygen Delivery Room Air Fraction of Inspired Oxygen 08/07/24 02:00 08/07/24 02:00 08/07/24 04:00 Temperature 36.9 C Pulse Rate 87 87 87 Respiratory Rate 18 12 Blood Pressure 159/90 H 111/79 Pulse Oximetry 99 99 Oxygen Delivery Fraction of Inspired Oxygen 08/07/24 04:00 08/07/24 04:00 08/07/24 06:00 Temperature Pulse Rate 87 79 Respiratory Rate 16 Blood Pressure 143/86 H Pulse Oximetry 99 99 Oxygen Delivery Room Air Fraction of Inspired Oxygen 08/07/24 06:00 08/07/24 07:36 08/07/24 08:33 Temperature 37.0 C Pulse Rate 79 76 70 Respiratory Rate 12 Blood Pressure 143/66 H Pulse Oximetry 99 Oxygen Delivery Fraction of Inspired Oxygen Intake/Output Intake/Output: Intake & Output 08/04/24 08/05/24 08/06/24 08/07/24 23:59 23:59 23:59 23:59 Intake Total 2588.6 4268.2 2077.7 Output Total 600 4000 2175 Balance 1988.6 268.2 -97.3 Meds/Results Medications: Active Medications Generic Name Dose Route Start Last Admin Trade Name Freq PRN Reason Stop Dose Admin Acetaminophen 650 mg 08/05/24 16:24 08/06/24 01:18 Acetaminophen 325 Mg Tablet PO 650 mg Q4H PRN Administration Mild Pain (1-3) or Fever Hydrocodone Bitart/Acetaminophen 1 tab 08/05/24 16:24 08/06/24 13:37 Hydrocodone/Acetaminophen (*Crx) 5-325 Mg Tablet PO 1 tab Q6H PRN Administration Pain Rated 4-6 Aspirin 81 mg 08/07/24 09:00 08/07/24 08:33 Aspirin 81 Mg Enteric Tablet PO 81 mg QAM SKYLAR Administration Atorvastatin Calcium 80 mg 08/06/24 13:35 08/07/24 08:34 Atorvastatin 40 Mg Tablet PO 80 mg DAILY SKYLAR Administration Calcium Carbonate 200 mg 08/06/24 07:35 08/06/24 20:14 Calcium Carbonate (Tums) 500 Mg (200 Mg Elemental) PO 200 mg Q6H PRN Administration Indigestion Dextrose 12.5 gm 08/05/24 15:57 Dextrose 50% 25 Gm/50 Ml Syringe IV PUSH PRN PRN Hypoglycemia Protocol Glucagon 1 mg 08/05/24 15:57 Glucagon For Inj 1 Mg Vial IM PRN PRN Hypoglycemia Protocol Glucose 15 gm 08/05/24 15:57 Glucose Oral Gel 15 Gm Of Glucse In 37.5 Gm Tube PO PRN PRN Hypoglycemia Protocol Heparin Sodium (Porcine) 4,000 units 08/06/24 14:47 Heparin Sodium 5,000 Units/Ml Vial IV PUSH PRN PRN aPTT less than 55 seconds Heparin Sodium (Porcine) 2,500 units 08/06/24 14:47 08/07/24 05:08 Heparin Sodium 5,000 Units/Ml Vial IV PUSH 2,500 units PRN PRN Administration aPTT 55 - 70 seconds Dextrose 1,000 mls @ 100 mls/hr 08/05/24 15:57 Dextrose 5% 1,000 Ml IVPB PRN PRN Hypoglycemia Protocol Heparin Sodium/Dextrose 25,000 units in 250 mls @ 9 mls/hr 08/06/24 14:50 08/07/24 05:00 Heparin Sodium/D5w 100 Units/Ml IV CONT 900 units/hr .Q24H SKYLAR 9 mls/hr Titration Protocol 900 UNITS/HR Sodium Phosphate 20 mm/ 256.6667 mls @ 50 mls/hr 08/07/24 07:24 08/07/24 08:32 Dextrose IVPB 08/07/24 12:31 50 mls/hr ONCE ONE Administration Insulin Aspart 3 - 6 units 08/07/24 09:00 08/07/24 08:40 Insulin Aspart (*Bkc) 100 Units/Ml SUB-Q Not Given Q4HR [facility] Protocol Insulin Glargine 40 units 08/08/24 21:00 Insulin Glargine (*Bkc) 100 Units/Ml SUB-Q HS [facility] Insulin Glargine 20 units 08/07/24 21:00 Insulin Glargine (*Bkc) 100 Units/Ml SUB-Q 08/07/24 21:01 ONCE ONE Metoprolol Tartrate 12.5 mg 08/06/24 13:00 08/07/24 08:33 Metoprolol Tartrate 12.5 Mg Tablet PO 12.5 mg Q12HR SKYLAR Administration Morphine Sulfate 2 mg 08/06/24 07:35 Morphine Sulfate (*Crx) 2 Mg/Ml Inj IV PUSH Q2H PRN Pain Rated 7-10 Ondansetron HCl 4 mg 08/05/24 16:24 08/06/24 08:32 Ondansetron Inj 4 Mg/2 Ml Vial IV PUSH 4 mg Q6H PRN Administration Nausea And Vomiting Pantoprazole Sodium 40 mg 08/06/24 09:00 08/07/24 08:32 Pantoprazole Sodium Iv 40 Mg Vial IV PUSH 40 mg QAM SKYLAR Administration Perflutren Lipid Microsphere 0 ml 08/06/24 12:57 Perflutren Lipid Microspheres 1.5 Ml Vial Diluted To 10 Ml Total Volume IV PUSH 08/09/24 12:59 ONCE PRN adequate visualization Protocol Radiology Results: ITS Impressions Chest X-Ray 08/05/24 16:42 IMPRESSION: 1: NO ACUTE CARDIOPULMONARY DISEASE. Abdomen/Pelvis CT 08/05/24 16:50 IMPRESSION: 1. No acute intra-abdominal/pelvic process. Labs 08/07/24 04:09 08/07/24 04:09 Labs: Laboratory Results - last 24 hr 08/05/24 08/06/24 08/06/24 14:55 08:23 10:07 WBC RBC Hgb Hct MCV MCH MCHC RDW Plt Count MPV Immature Gran % (Auto) Neut % (Auto) Lymph % (Auto) [place] % (Auto) Eos % (Auto) Baso % (Auto) Lymph # (Auto) [place] # (Auto) Eos # (Auto) Baso # (Auto) Abs Immat Gran (auto) Absolute Neuts (auto) Absolute Nucleated RBC Nucleated RBC % PT INR APTT Sodium Potassium Chloride Carbon Dioxide Anion Gap BUN Creatinine Estim Creat Clear Calc Estimated GFR Glucose POC Capillary Glucose 187 H Lactic Acid 4.2 H* Calcium Phosphorus Magnesium Total Bilirubin AST ALT Alkaline Phosphatase Troponin I 0.923 H* Total Protein Albumin Triglycerides Cholesterol LDL Cholesterol Direct HDL Direct 08/06/24 08/06/24 08/06/24 11:03 12:07 12:09 WBC RBC Hgb Hct MCV MCH MCHC RDW Plt Count MPV Immature Gran % (Auto) Neut % (Auto) Lymph % (Auto) [place] % (Auto) Eos % (Auto) Baso % (Auto) Lymph # (Auto) [place] # (Auto) Eos # (Auto) Baso # (Auto) Abs Immat Gran (auto) Absolute Neuts (auto) Absolute Nucleated RBC Nucleated RBC % PT INR APTT Sodium 132 L Potassium 4.3 Chloride 106 Carbon Dioxide 12 L Anion Gap 14 H BUN 11 Creatinine 0.68 L Estim Creat Clear Calc 116 Estimated GFR > 60 Glucose 191 H POC Capillary Glucose 201 H 218 H Lactic Acid Calcium 8.9 Phosphorus Magnesium Total Bilirubin AST ALT Alkaline Phosphatase Troponin I Total Protein Albumin Triglycerides Cholesterol LDL Cholesterol Direct HDL Direct 08/06/24 08/06/24 08/06/24 13:10 14:12 14:59 WBC 14.9 H RBC 4.75 Hgb 13.4 L Hct 41.0 L MCV 86.3 MCH 28.2 MCHC 32.7 RDW 12.9 Plt Count 171 MPV 12.6 H Immature Gran % (Auto) 0.5 Neut % (Auto) 87.6 H Lymph % (Auto) 5.7 L [place] % (Auto) 6.1 Eos % (Auto) 0.0 Baso % (Auto) 0.1 L Lymph # (Auto) 0.85 L [place] # (Auto) 0.9 H Eos # (Auto) 0.0 Baso # (Auto) 0.0 Abs Immat Gran (auto) 0.08 H Absolute Neuts (auto) 13.0 H Absolute Nucleated RBC 0.000 Nucleated RBC % 0.0 PT 12.2 INR 0.9 APTT 28.2 Sodium Potassium Chloride Carbon Dioxide Anion Gap BUN Creatinine Estim Creat Clear Calc Estimated GFR Glucose POC Capillary Glucose 189 H 232 H Lactic Acid Calcium Phosphorus Magnesium Total Bilirubin AST ALT Alkaline Phosphatase Troponin I Cancelled Total Protein Albumin Triglycerides Cholesterol LDL Cholesterol Direct HDL Direct 08/06/24 08/06/24 08/06/24 14:59 15:16 16:05 WBC RBC Hgb Hct MCV MCH MCHC RDW Plt Count MPV Immature Gran % (Auto) Neut % (Auto) Lymph % (Auto) [place] % (Auto) Eos % (Auto) Baso % (Auto) Lymph # (Auto) [place] # (Auto) Eos # (Auto) Baso # (Auto) Abs Immat Gran (auto) Absolute Neuts (auto) Absolute Nucleated RBC Nucleated RBC % PT INR APTT Sodium 132 L Potassium 4.3 Chloride 105 Carbon Dioxide 14 L Anion Gap 13 H BUN 9 Creatinine 0.69 L Estim Creat Clear Calc 115 Estimated GFR > 60 Glucose 189 H POC Capillary Glucose 204 H Lactic Acid Calcium 9.0 Phosphorus Magnesium Total Bilirubin 0.8 AST 37 ALT 27 Alkaline Phosphatase 78 Troponin I 0.751 H* Total Protein 7.1 Albumin 4.2 Triglycerides 110 Cholesterol 416 H LDL Cholesterol Direct 252 HDL Direct 42 08/06/24 08/06/24 08/06/24 16:06 17:03 18:06 WBC RBC Hgb Hct MCV MCH MCHC RDW Plt Count MPV Immature Gran % (Auto) Neut % (Auto) Lymph % (Auto) [place] % (Auto) Eos % (Auto) Baso % (Auto) Lymph # (Auto) [place] # (Auto) Eos # (Auto) Baso # (Auto) Abs Immat Gran (auto) Absolute Neuts (auto) Absolute Nucleated RBC Nucleated RBC % PT INR APTT Sodium Potassium Chloride Carbon Dioxide Anion Gap BUN Creatinine Estim Creat Clear Calc Estimated GFR Glucose POC Capillary Glucose 207 H 205 H 195 H Lactic Acid Calcium Phosphorus Magnesium Total Bilirubin AST ALT Alkaline Phosphatase Troponin I Total Protein Albumin Triglycerides Cholesterol LDL Cholesterol Direct HDL Direct 08/06/24 08/06/24 08/06/24 19:00 19:43 20:03 WBC RBC Hgb Hct MCV MCH MCHC RDW Plt Count MPV Immature Gran % (Auto) Neut % (Auto) Lymph % (Auto) [place] % (Auto) Eos % (Auto) Baso % (Auto) Lymph # (Auto) [place] # (Auto) Eos # (Auto) Baso # (Auto) Abs Immat Gran (auto) Absolute Neuts (auto) Absolute Nucleated RBC Nucleated RBC % PT INR APTT Sodium 131 L Potassium 4.4 Chloride 105 Carbon Dioxide 16 L Anion Gap 10 BUN 8 L Creatinine 0.63 L Estim Creat Clear Calc 125 Estimated GFR > 60 Glucose 203 H POC Capillary Glucose 212 H 196 H Lactic Acid Calcium 8.9 Phosphorus Magnesium Total Bilirubin AST ALT Alkaline Phosphatase Troponin I 0.648 H* Total Protein Albumin Triglycerides Cholesterol LDL Cholesterol Direct HDL Direct 06/04/25 06/04/25 06/04/25 21:18 22:01 22:05 WBC RBC Hgb Hct MCV MCH MCHC RDW Plt Count MPV Immature Gran % (Auto) Neut % (Auto) Lymph % (Auto) [place] % (Auto) Eos % (Auto) Baso % (Auto) Lymph # (Auto) [place] # (Auto) Eos # (Auto) Baso # (Auto) Abs Immat Gran (auto) Absolute Neuts (auto) Absolute Nucleated RBC Nucleated RBC % PT INR APTT 76.2 H Sodium Potassium Chloride Carbon Dioxide Anion Gap BUN Creatinine Estim Creat Clear Calc Estimated GFR Glucose POC Capillary Glucose 227 H 219 H Lactic Acid Calcium Phosphorus Magnesium Total Bilirubin AST ALT Alkaline Phosphatase Troponin I Total Protein Albumin Triglycerides Cholesterol LDL Cholesterol Direct HDL Direct 08/06/24 08/07/24 08/07/24 23:04 00:04 00:20 WBC RBC Hgb Hct MCV MCH MCHC RDW Plt Count MPV Immature Gran % (Auto) Neut % (Auto) Lymph % (Auto) [place] % (Auto) Eos % (Auto) Baso % (Auto) Lymph # (Auto) [place] # (Auto) Eos # (Auto) Baso # (Auto) Abs Immat Gran (auto) Absolute Neuts (auto) Absolute Nucleated RBC Nucleated RBC % PT INR APTT Sodium 129 L Potassium 4.4 Chloride 105 Carbon Dioxide 15 L Anion Gap 9 BUN 8 L Creatinine 0.64 L Estim Creat Clear Calc 123 Estimated GFR > 60 Glucose 225 H POC Capillary Glucose 220 H 218 H Lactic Acid Calcium 9.0 Phosphorus Magnesium Total Bilirubin AST ALT Alkaline Phosphatase Troponin I Total Protein Albumin Triglycerides Cholesterol LDL Cholesterol Direct HDL Direct 08/07/24 08/07/24 08/07/24 01:08 02:07 03:09 WBC RBC Hgb Hct MCV MCH MCHC RDW Plt Count MPV Immature Gran % (Auto) Neut % (Auto) Lymph % (Auto) [place] % (Auto) Eos % (Auto) Baso % (Auto) Lymph # (Auto) [place] # (Auto) Eos # (Auto) Baso # (Auto) Abs Immat Gran (auto) Absolute Neuts (auto) Absolute Nucleated RBC Nucleated RBC % PT INR APTT Sodium Potassium Chloride Carbon Dioxide Anion Gap BUN Creatinine Estim Creat Clear Calc Estimated GFR Glucose POC Capillary Glucose 247 H 256 H 231 H Lactic Acid Calcium Phosphorus Magnesium Total Bilirubin AST ALT Alkaline Phosphatase Troponin I Total Protein Albumin Triglycerides Cholesterol LDL Cholesterol Direct HDL Direct 08/07/24 08/07/24 08/07/24 04:07 04:09 05:04 WBC 10.3 H RBC 4.69 Hgb 13.1 L Hct 39.0 L MCV 83.2 MCH 27.9 MCHC 33.6 RDW 12.8 Plt Count 162 MPV 12.7 H Immature Gran % (Auto) 0.3 Neut % (Auto) 85.4 H Lymph % (Auto) 9.0 L [place] % (Auto) 5.0 Eos % (Auto) 0.1 Baso % (Auto) 0.2 Lymph # (Auto) 0.93 [place] # (Auto) 0.5 Eos # (Auto) 0.0 Baso # (Auto) 0.0 Abs Immat Gran (auto) 0.03 Absolute Neuts (auto) 8.8 H Absolute Nucleated RBC 0.000 Nucleated RBC % 0.0 PT INR APTT 58.6 H Sodium 131 L Potassium 4.0 Chloride 106 Carbon Dioxide 18 L Anion Gap 7 BUN 7 L Creatinine 0.60 L Estim Creat Clear Calc 129 Estimated GFR > 60 Glucose 213 H POC Capillary Glucose 230 H 217 H Lactic Acid Calcium 8.9 Phosphorus 1.4 L Magnesium 1.9 Total Bilirubin AST ALT Alkaline Phosphatase Troponin I Total Protein Albumin Triglycerides Cholesterol LDL Cholesterol Direct HDL Direct 08/07/24 08/07/24 08/07/24 06:10 07:01 08:17 WBC RBC Hgb Hct MCV MCH MCHC RDW Plt Count MPV Immature Gran % (Auto) Neut % (Auto) Lymph % (Auto) [place] % (Auto) Eos % (Auto) Baso % (Auto) Lymph # (Auto) [place] # (Auto) Eos # (Auto) Baso # (Auto) Abs Immat Gran (auto) Absolute Neuts (auto) Absolute Nucleated RBC Nucleated RBC % PT INR APTT Sodium Potassium Chloride Carbon Dioxide Anion Gap BUN Creatinine Estim Creat Clear Calc Estimated GFR Glucose POC Capillary Glucose 220 H 229 H 239 H Lactic Acid Calcium Phosphorus Magnesium Total Bilirubin AST ALT Alkaline Phosphatase Troponin I Total Protein Albumin Triglycerides Cholesterol LDL Cholesterol Direct HDL Direct ASA Classification/Sedation ASA Classification/Sedation ASA Class: III Emergent: No Risks: Risks, benefits and alternatives explained and patient/family accepted plan for sedation. Patient re-evaluated immediately prior to sedation.
--- NOTE | 2024-08-07 09:47 | WPDHPUPDATE1 ---
History and Physical Update Update Date/Time: 08/07/24 08:47 History and Physical has been reviewed, including an updated exam of the patient. There are NO changes in the patient's condition. Risks, benefits, and alternatives have been discussed and questions answered. Patient agrees to proceed with procedure.
--- NOTE | 2024-08-07 10:36 | WPDCARDPROC ---
Cardiac Cath Procedure Note Date of procedure:: 08/07/24 Performing physician:: CATHETERIZATION LABORATORY REPORT Procedure Date: 08/07/2024 Referring Physician: Dr. Garcia Anesthesia: Versed and Fentanyl were ordered and given in my presence at 0952, procedure ended at 1032. Supervision of nurse, Vani De Leon monitored moderate sedation with 2mg Versed and 100mcg Fentanyl was provided for 40 minutes. Pre-op Diagnosis: NSTEMI Post-op Diagnosis: NSTEMI Procedure(s): Left heart catheterization with coronary angiography Access Site: Right common femoral artery Brief History and Clinical Indications: 44-year-old man with insulin-dependent diabetes and coronary artery disease status post PCI to proximal LAD presented with whole body aches and nausea/vomiting found to have elevated troponin along with exertional dyspnea and is new for the past few days prior to presentation is now here for cardiac catheterization to define his coronary anatomy with possible PCI. All risks, benefits and alternatives to left heart catheterization with or without percutaneous coronary intervention was discussed at length with the patient. Risk of complications including but not limited to bleeding, infection, arrhythmia, stroke, worsening kidney function, blood loss, groin hematoma, limb loss, emergency coronary artery bypass grafting, and even were discussed with the patient and all questions were answered. The patient understood and wished to proceed. Time out called, patient name, date of , medical record number, allergies, procedure performed, identify Product Specialist, patient and staff member concurred with accurate data, procedure carried on. Findings: LEFT HEART CATHETERIZATION FINDINGS: 1. Left main: The left main coronary artery has diffuse 10% stenosis. 2. Left anterior descending: The LAD provides 2 moderate size diagonal branches. There is a proximally placed stent with diffuse 70% stenosis. Within the stent there is a jailed diagonal that is chronically occluded in its proximal body and this diagonal reconstitutes distally via [id number] collaterals. Immediately distal to the previously placed stent, there is a 90% stenosis followed by a long segment of chronic total occlusion before reconstituting in the mid to distal vessel via [id number] collaterals that fill retrograde. 3. Left circumflex: The left circumflex artery is a codominant vessel that supplies 2 OM branches prior to giving off the left PDA and PL branches. The proximal left circumflex has 70% stenosis. The left circumflex between the 2 OM branches has 50% stenosis. OM1 is a small caliber vessel supplying a small territory. The remainder of the system has luminal irregularities. 4. Right coronary artery: The RCA is likely a small caliber codominant vessel that occludes distally. 5. Left ventricle: A. End-diastolic pressure 4 mmHg. B. LV gram deferred. C. No significant gradient across aortic valve on catheter pullback. 6. Opening AO pressure 119/69 and closing AO pressure 104/59 Description of Procedure: Informed consent signed and placed in the chart. Patient transferred to laboratory mechanic helper room. Prepped and draped in usual sterile fashion. 2% lidocaine in right groin area. Micropuncture needle used to access right common femoral artery with Seldinger technique under ultrasound and fluoroscopic guidance. J wire advanced, micropuncture cannula placed and exchanged for 5 Wolof sheath. JL4 diagnostic catheter engaged Left Main Coronary Artery. We were unable to locate the right coronary artery with a JR4 and we switched over to a WRP diagnostic catheter which also was unable to locate the right coronary artery. We then did an aortic root angiogram with the pigtail placed in right coronary cusp and still unable define the ostium of the RCA. At this time we used the AR mod diagnostic catheter which located the ostium of the RCA to be at the anterior and high takeoff of the right coronary cusp. Multiple orthogonal angiogram obtained and reviewed The aforementioned JR4 diagnostic catheter crossed aortic valve to obtain LVEDP, LV angiogram deferred. Hemostasis was achieved by Angio-Seal Assessment: Multivessel severe CAD Post Operative Condition: Stable No significant blood loss Disposition: Floor Plan: Will start losartan 25 mg p.o. daily and consolidate his Lopressor to metoprolol succinate 25 mg p.o. daily Continue aspirin 81 mg p.o. daily and atorvastatin 80 mg every evening He can be discharged from cardiology perspective to follow up with CT surgery at [facility]
--- NOTE | 2024-08-07 10:43 | PC.NURSE ---
0924 To [facility] Drama Critic with RN in attendance
[2024-08-07 11:29] LABS: Glucose Point of Care 240 mg/dl (65-105)
[2024-08-07] MEDS: SODIUM CHLORIDE 0.9% IV 1,000 ML 100 ML IV CONT (11:31)
[2024-08-07] MEDS: ONDANSETRON INJ 4 MG/2 ML VIAL IV PUSH (11:31)
[2024-08-07] MEDS: INSULIN ASPART (*BKC) 100 UNITS/ML SUB-Q (11:32)
--- NOTE | 2024-08-07 14:47 | ECG_ITS ---
Test Date: 2024-08-07 14:54:32 Measurements Intervals [place] Rate: 84 P: 78 TX: 124 QRS: 72 QRSD: 93 T: 56 QT: 382 QTc: 454 Interpretive Statements SINUS RHYTHM POSSIBLE LEFT ATRIAL ENLARGEMENT ANTEROSEPTAL INFARCT, AGE INDETERMINATE BORDERLINE ST ABNORMALITY- INFERIOR LEADS BASELINE WANDER- II, III, AVF, V1-V2 ABNORMAL ECG Compared to ECG 08/06/2024 10:40:58 No significant changes Electronically Signed On 08-07-2024 16:05:28 CDT by Broderick Miranda D.O.
[2024-08-07] MEDS: NITROGLYCERIN SL 0.4 MG TABLET SUBLINGUAL (15:01)
--- NOTE | 2024-08-07 15:52 | PM.EVENT ---
Event Note Event Note Event Note: Upon re-evaluation of the patient, he started to complain of left-sided chest pain that is pressure as well as sharp in consistency. There is similar pain to 2 days ago. We repeated the EKG which is stable compared to previous and we rediscussed perhaps he should be transferred to [facility] now for evaluation for coronary artery bypass grafting. Spoke with transfer center in CT surgery at [facility]. To be transfer to Dr. Garcia service at [facility]. His cath and echo films have been pushed through [facility].
[2024-08-07 15:53] LABS: Glucose Point of Care 172 mg/dl (65-105)
[2024-08-07 18:36] LABS: Alanine Aminotransferase 25 U/L (6-50); Alkaline Phosphatase 83 U/L (38-126); Anion Gap 13 mmol/L (4-12); Aspartate Amino Transferase 32 U/L (17-59); Bilirubin,Total 0.9 mg/dL (0.2-1.3); Blood Urea Nitrogen 6 mg/dL (9-20); Calcium 9.1 mg/dL (8.4-10.2); Carbon Dioxide 15 mmol/L (22-30); Chloride 104 mmol/L (98-107); Estimated CRCL calculation 109 ml/min; Estimated Glomerular Filt Rate > 60; Glucose 154 mg/dL (65-110); Potassium 3.9 mmol/L (3.4-5.0); Sodium 132 mmol/L (137-145); Total Protein 6.8 g/dL (6.3-8.2)
--- NOTE | 2024-08-07 19:59 | PC.NURSE ---
Patient transferred to [facility] at this time to floor [address] [place] room 267-2 via [facility]. All patient valuables with patient. Patient alert ad oriented. Patient aware of transfer. Thanked this nurse for care. This nurse called [address] [place] and gave an ETA of 40-45 mins to Roger.
--- NOTE | 2024-08-11 15:08 | P.TS_ITS ---
Transfer Discharge Sum: Prov Provider Date of admission: 08/07/24 09:05 Primary care physician: UNKNOWN,DOCTOR Admitting clinician: Kristian Romano MD Attending physician on admission: Kristian Romano Consults: 08/05/24 Consult to Physician Routine Comment: Consulting Provider: Tanner Moser Reason for consultation: DKA Has provider been notified: Yes 08/05/24 15:57 Consult to Dietitian Routine Reason for Consult:: DKA admission 08/06/24 Consult to Physician Routine Comment: Spoke with provider 08/06 @ 5109 Consulting Provider: Jocelyn Curtis claim agent/MD group to consult: Cardiology Reason for consultation: Elevated troponin, abnormal EKG, poorly controlled diabetes Has provider been notified: Yes Attending physician on discharge: Kristian Romano Discharging clinician: Kp Alexander Anticipated date of transfer: 08/07/24 Receiving physician/facility: Dr. Quiros at [facility] DS: Admitting Diagnosis Discharge Date 08/07/24 Admitting Diagnosis Diabetic ketoacidosis Non ST elevation DE Transfer Discharge Sum: Med Medications Active and Home Medications: Home Medications empagliflozin 25 mg tablet (Jardiance) 25 mg PO DAILY 08/05/24 [History Confirmed 08/05/24] insulin glargine 100 unit/mL (3 mL) subcutaneous pen (Basaglar KwikPen U-100 Insulin) 40 unit subcut QPM 08/05/24 [History Confirmed 08/05/24] metformin 500 mg tablet,extended release 24 hr 500 mg PO QPM 08/05/24 [History Confirmed 08/05/24] Transfer Discharge Sum: Hosp Hospital Course Hospital course: Nomi Elliott is a 44 year old male with insulin-dependent diabetes and coronary artery disease status post PCI to proximal LAD presented with whole body aches and nausea/vomiting found to have elevated troponin along with exertional dyspnea for which a cardiac catheterization was offered. After discussing the risks, benefits, and alternatives patient decided to proceed forward cardiac catheterization. He was found have multivessel CAD whose coronary anatomy was complex and better suited for bypass surgery which also was the better option given his cardiomyopathy as well as his diabetes. After the cardiac catheterization, we discussed the results. After which the patient started complaining of chest discomfort for which it was offered to him to be transferred to [facility] for definitive surgical revascularization. Time Spent with Patient Time attestation: Total time spent providing and/or coordinating transfer services: Total time spent: Greater than 30 minutes
== END 2024-08-07 20:00 | disposition short-term general hospital (02) | DRG 190 ==
LOC: ANHED 16:20 → ANHICU 17:49
PROVIDERS: Internal Medicine; Student in an Organized Health Care Education/Training Program; Admitting Provider Internal Medicine; Emergency Provider Emergency Medicine; Visit Provider Internal Medicine
PROC: 4A023N7 Measurement of Cardiac Sampling and Pressure, Left Heart, Percutaneous Approach (ICD-10-PCS; CPT 93452; principal; 2024-08-07 09:30)
PROC: 4A023N7 Measurement of Cardiac Sampling and Pressure, Left Heart, Percutaneous Approach (ICD-10-PCS; 2024-08-07 09:30)
DX: I21.4 Non-ST elevation (NSTEMI) myocardial infarction (principal); E11.10 Type 2 diabetes mellitus with ketoacidosis without coma; F12.90 Cannabis use, unspecified, uncomplicated; I25.10 Atherosclerotic heart disease of native coronary artery without angina pectoris; I25.5 Ischemic cardiomyopathy; R15.9 Full incontinence of feces; Z95.5 Presence of coronary angioplasty implant and graft; Z79.84 Long term (current) use of oral hypoglycemic drugs; Z20.822 Contact with and (suspected) exposure to COVID-19; Z79.4 Long term (current) use of insulin
CPT/HCPCS: 36415; 36600; 71045; 74177; 80048; 80053; 80061; 80307; 81001; 82010; 82077; 82375; 82803; 82805; 82948; 83036; 83050; 83605; 83690; 83735; 84100; 84443; 84484; 85018; 85025; 85055; 85610; 85730; 87040; 87637; 87641; 93005; 93306; 93458; 96361; 96365; 96366; 96372; 96374; 96375; 96376; 99285; A9270; C1760; C1769; C1887; C1894; G0269; G0378; G0379; J0360; J1644; J1650; J1815; J2003; J2250; J2405; J2470; J3010; J3480; J7030; J7040; J7060; J7120; Q9967